=== PATIENT | female | born 1940 | race Hispanic/Latino ===

== ENCOUNTER 2016-11-11 08:22 | Emergency (ER) | payer MEDICARE ==
[2016-11-11 09:30] VITALS: RESP 18; BMI 29.2
--- NOTE | 2016-11-11 09:42 | ED PDOC ---
Arrival/HPI - General Chief Complaint: Lower Extremity Problem/Injury Time Seen by Provider: 11/11/16 08:23 Historian: Patient - History of Present Illness Narrative History of Present Illness (Text): 11/11/16 09:15 76 y/o female, pmh including htn/asthma/breast cancer, nkda, c/o rt. knee locking sensation x 6 months with no fall or trauma. Pt. stated that she constantly feeling rt. knee locking sensation with locking sound on and off, more often recently, didn't had the chance to see her own pmd or orthopedic, had rt. knee surgery but forgot the surgeon name, mild pain on the rt. knee, no calf pain, no fever or chills, no chest pain or shortness of breath, no other medical or psychological complaints. Past Medical History - Provider Review Nursing Documentation Reviewed: Yes - Infectious Disease Hx of Infectious Diseases: None - Tetanus Immunization Tetanus Immunization: Unknown - Cardiac Hx Hypertension: Yes - Pulmonary Hx Respiratory Disorders: No - Neurological Hx Neurological Disorder: No - HEENT Hx HEENT Disorder: Yes (WEARS RX GLASSES) Hx Cataracts: Yes (CATARACT SURGERY) - Renal Hx Renal Disorder: No - Endocrine/Metabolic Hx Endocrine Disorders: No - Hematological/Oncological Hx Blood Disorders: Yes Hx Cancer: Yes (breast) - Integumentary Hx Dermatological Disorder: No - Musculoskeletal/Rheumatological Hx Musculoskeletal Disorders: Yes Hx Arthritis: Yes - Gastrointestinal Hx Gastrointestinal Disorders: Yes (APPENDECTOMY) Hx Gastroesophageal Reflux: Yes - Genitourinary/Gynecological Hx Genitourinary Disorders: Yes (RIGHT BREAST LUMPECTOMY) - Psychiatric Hx Emotional Abuse: No Hx Physical Abuse: No Hx Substance Use: No - Surgical History Hx Appendectomy: Yes Hx Cardiac Catheterization: Yes Hx Mastectomy: Yes (right lumpectomy) - Anesthesia Hx Anesthesia: No Hx Anesthesia Reactions: Yes (NAUSEAS AND VOMITING) Hx Malignant Hyperthermia: No - Suicidal Assessment Feels Threatened In Home Enviroment: No Family/Social History - Physician Review Nursing Documentation Reviewed: Yes Family/Social History: Unknown Family HX Smoking Status: Former Smoker Hx Alcohol Use: No Hx Substance Use: No Allergies/Home Meds Allergies/Adverse Reactions: Allergies No Known Allergies Allergy (Verified 07/17/14 19:01) Home Medications: Home Meds Medication Instructions Recorded Confirmed Alprazolam [Xanax] 1 mg PO QID 07/01/13 07/17/14 Tamoxifen [Nolvadex] 20 mg PO DAILY 07/01/13 07/17/14 Aspirin [Aspir 81] 81 mg PO DAILY 07/07/13 07/17/14 Dexlansoprazole [Dexilant] 60 mg PO DAILY 07/08/13 07/17/14 Sucralfate [Carafate Oral Susp] 2 tsp PO TID 07/08/13 07/17/14 Albuterol HFA [Ventolin HFA 90 07/17/14 07/17/14 mcg/actuation (8 g)] Codeine Phosphate/Promethazi 07/17/14 07/17/14 [Codeine/Promethazine 10 mg/5 ml-6.25 mg/5 ml ] Carvedilol [Coreg] 6.25 PO Q12H 07/18/14 07/18/14 Review of Systems - Review of Systems Constitutional: absent: Fatigue, Fevers Eyes: absent: Vision Changes ENT: absent: Hearing Changes Respiratory: absent: SOB, Cough Cardiovascular: absent: Chest Pain Gastrointestinal: absent: Abdominal Pain, Nausea, Vomiting Musculoskeletal: Arthralgias. absent: Back Pain, Neck Pain, Joint Swelling, Myalgias Physical Exam Vital Signs Reviewed: Yes Vital Signs Temp Pulse Resp BP Pulse Ox 11/11/16 10:51 98.0 F 74 18 157/86 H 99 11/11/16 09:29 98.2 F 83 18 171/101 H 100 Temperature: Afebrile Blood Pressure: Hypertensive Pulse: Regular Respiratory Rate: Normal Appearance: Positive for: Well-Appearing, Non-Toxic, Comfortable Pain Distress: Mild Mental Status: Positive for: Alert and Oriented X 3 - Systems Exam Head: Present: Atraumatic, Normocephalic Pupils: Present: PERRL Extroacular Muscles: Present: EOMI Conjunctiva: Present: Normal Mouth: Present: Moist Mucous Membranes Neck: Present: Normal Range of Motion Respiratory/Chest: Present: Clear to Auscultation, Good Air Exchange. No: Respiratory Distress, Accessory Muscle Use Cardiovascular: Present: Regular Rate and Rhythm, Normal S1, S2. No: Murmurs Abdomen: Present: Normal Bowel Sounds. No: Tenderness, Distention, Peritoneal Signs Back: Present: Normal Inspection Upper Extremity: Present: Normal Inspection. No: Cyanosis, Edema Lower Extremity: Present: Normal Inspection, Other (Rt. knee: mild +ttp on the medial anterior aspect, negative anne and braden signs, FROM without limitation, sensation intact, motor 5/5, +DPPT pulses, capillary refill< 2 seconds, neurovascular intact. ). No: Edema Neurological: Present: GCS=15, Speech Normal, Motor Func Grossly Intact, Gait Normal, Memory Normal Skin: Present: Warm, Dry, Normal Color. No: Rashes Psychiatric: Present: Alert, Oriented x 3, Normal Insight, Normal Concentration Medical Decision Making ED Course and Treatment: 11/11/16 09:42 -rt. knee xray show no fracture or dislocation but there is degenerative joint changes, explained to the patient that she will need outpatient orthopedic and MRI for possible looking for meniscus injury. -Discharge home with cane, knee immobilizer, tylenol, avoid walking up or down the stair as this will causes locking knee, avoid walking excessively, follow up with your own pmd and orthopedic for follow up with outpatient MRI follow up as well, return to the ER for any new or worsening signs or symptoms. 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 Disposition/Present on Arrival - Present on Arrival Any Indicators Present on Arrival: No History of DVT/PE: No History of Uncontrolled Diabetes: No Urinary Catheter: No History of Decub. Ulcer: No History Surgical Site Infection Following: None - Disposition Have Diagnosis and Disposition been Completed?: Yes Diagnosis: Knee locking, Knee pain Disposition: HOME/ ROUTINE Disposition Time: 09:42 Patient Plan: Discharge Condition: GOOD Additional Instructions: -Discharge home with cane, knee immobilizer, tylenol, avoid walking up or down the stair as this will causes locking knee, avoid walking excessively, follow up with your own pmd and orthopedic for follow up with outpatient MRI follow up as well, return to the ER for any new or worsening signs or symptoms. Prescriptions: Acetaminophen [Tylenol 325mg tab] 2 tab PO QID PRN #30 tab PRN Reason: Other Referrals: Dash Serna JD, MD [Primary Care Provider] - Follow up with primary Irvin Palacio DO [Staff Provider] - Follow up with primary
[2016-11-11 10:52] VITALS: PULSE 74; TEMP 98; O2SAT 99
[2016-11-11 10:55] VITALS: BP 157/86
--- NOTE | 2016-11-11 11:02 | RAD ---
PROCEDURE: Right Knee Radiographs. HISTORY: rt. knee locking COMPARISON: None. FINDINGS: BONES: Normal. No fracture. JOINTS: There is joint space narrowing in the medial compartment with osteophyte formation. JOINT EFFUSION: None. OTHER FINDINGS: None. IMPRESSION: Medial joint space narrowing and osteophyte formation
== END 2016-11-11 11:00 | disposition home or self-care (01) ==
LOC: ED 08:22
DX: M23.91 Unspecified internal derangement of right knee (principal); M25.561 Pain in right knee

== ENCOUNTER 2017-01-23 10:11 | Emergency (ER) | payer MEDICARE ==
[2017-01-23 10:12] VITALS: BMI 29.2
[2017-01-23 10:34] VITALS: TEMP 98.3
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
[2017-01-23 11:48] LABS: URINE BILIRUBIN NEGATIVE (NEGATIVE); URINE BLOOD NEGATIVE (NEGATIVE); URINE GLUCOSE (UA) NEGATIVE (NEGATIVE); URINE KETONE NEGATIVE (NEGATIVE); URINE LEUKOCYTE ESTERASE NEGATIVE Leu/uL (NEGATIVE); URINE PROTEIN NEGATIVE mg/dL (<30 mg/dL); URINE UROBILINOGEN 0.2 E.U./dL (<1 E.U./dL)
[2017-01-23 11:57] LABS: URINE APPEARANCE CLEAR (CLEAR); URINE COLOR YELLOW (YELLOW)
[2017-01-23 12:00] LABS: ALB/GLOB RATIO 1.3 (1.1-1.8); BILIRUBIN,TOTAL 0.7 mg/dL (0.2-1.3); CALCIUM 9.7 mg/dL (8.4-10.5); POTASSIUM 3.7 mmol/L (3.6-5.0); TOTAL PROTEIN 8.2 g/dL (5.8-8.3)
[2017-01-23 12:08] LABS: BASO # 0.04 K/mm3 (0.0-2.0); BASO % 0.5 % (0.0-3.0); EOS # 0.1 (0.0-0.7); EOS % 1.2 % (1.5-5.0); GRAN # 4.45 (1.4-6.5); GRAN % 61.2 % (50.0-68.0); HEMATOCRIT 40.8 % (36.0-48.0); LYMPH # 2.1 (1.2-3.4); LYMPH % 29.3 % (22.0-35.0); MEAN CELL VOLUME 92.1 fl (80.0-105.0); MEAN CORPUSCULAR HEMOGLOBIN 31.2 pg (25.0-35.0); MEAN CORPUSCULAR HGB CONC 33.8 g/dl (31.0-37.0); MEAN PLATELET VOLUME 11.7 fl (7.0-11.0); MONO # 0.6 (0.1-0.6); MONO % 7.8 % (1.0-6.0); RED CELL DISTRIBUTION WIDTH 13.1 % (11.5-14.5); WHITE BLOOD COUNT 7.3 10^3/ul (4.5-11.0)
--- NOTE | 2017-01-23 13:10 | RAD ---
HISTORY: psych COMPARISON: Portable chest 07/17/2014. FINDINGS: LUNGS: Inspiratory volume appears diminished in the interval, crowding the bilateral bronchovascular markings at the bases. No definitive infiltrate is suspected. Air-fluid levels seen within its moderate hiatal hernia posterior to the heart. PLEURA: No significant pleural effusion identified, no pneumothorax apparent. CARDIOVASCULAR: Stable cardiomegaly. No pulmonary vascular derangement identified. OSSEOUS STRUCTURES: No significant abnormalities. VISUALIZED UPPER ABDOMEN: Normal. OTHER FINDINGS: None. IMPRESSION: Diminished history effort crowds the bronchovascular markings at both bases but no definite infiltrate is identified bilaterally. Cardiomegaly appears stable and hiatal hernia again identified.
[2017-01-23 16:55] VITALS: BP 141/97; PULSE 78; RESP 12; O2SAT 99
--- NOTE | 2017-01-23 18:45 | CARD ---
APPROVED REPORT EKG Measurement Heart [id number] <Conclusion> Normal sinus rhythm Normal ECG
== END 2017-01-23 17:09 | disposition home or self-care (01) ==
LOC: ED 10:11
DX: F41.9 Anxiety disorder, unspecified (principal); I10 Essential (primary) hypertension; Z87.891 Personal history of nicotine dependence
CPT/HCPCS: 71010; 80053; 81003; 85025; 90791; 93005; 99284; G0480

== ENCOUNTER 2017-05-19 07:36 | Day surgery (SDC) | payer MEDICARE ==
--- NOTE | 2017-05-17 01:06 | HP ---
REASON FOR ADMISSION: Left heart cath possible angioplasty. BRIEF CLINICAL HISTORY: This is a 76-year-old female with [id number] obesity, history of gastroesophageal reflux, hypertension, admitted for elective cardiac cath possible angioplasty. The patient had a stress test on 04/23/2017 that shows probably abnormal myocardial perfusion study, partially reversible distal anteroseptal and apical defect suspicious ischemia with ejection fraction 75%. When compared from the study dated 04/02/2012, the defect appeared new. PAST MEDICAL HISTORY: Significant for hypertension, hyperlipidemia, and gastroesophageal reflux. SOCIAL HISTORY: Denies smoking. Denies any history of alcohol abuse. CURRENT MEDICATIONS: The patient is taking hydrochlorothiazide 12.5 mg daily, Dexilant 50 mg daily, Coreg 6.25 mg daily, and Ativan 0.5 mg daily. REVIEW OF SYSTEMS: As per HPI. RECENT CARDIAC WORKUP: The patient had a stress dated 04/23/2017 that was sestamibi myocardial perfusion scan that showed ejection fraction 75%, fully abnormal myocardial perfusion, partially reversible distal anteroseptal and apical defect suspicious for ischemia when compared from previous study dated 04/02/2012, defect appears new. The patient had a prior cardiac catheterization done by Dr. Hari Blanco dated 07/02/2013 that showed left main essentially free of significant disease. LAD shows some luminal irregularities. There was no flow obstruction or stenosis noted. Circumflex artery revealed borderline 50% stenosis in the proximal segment of the circumflex. Rest of the vessel shows irregularities, no flow obstruction or stenosis noted. Right coronary artery selectively canalized and found to be dominant vessel. RCA revealed ____ no flow obstruction or stenosis noted. LV gram showed ejection fraction 60%. PHYSICAL EXAMINATION GENERAL: Height of the patient is 5 feet 4 inches, weight of the patient is 170 pounds, body mass index 29.2 kg/m2. VITAL SIGNS: Blood pressure 134/80, heart rate 60. HEENT: PERRLA. Extraocular muscles intact. NECK: Supple. No carotid bruits or thyromegaly. CHEST: Clear to auscultation. CARDIOPULMONARY: S1 and S2 regular. ABDOMEN: Soft. EXTREMITIES: Clubbing and cyanosis negative. LABORATORY DATA: Blood workup is pending. IMPRESSION: Abnormal stress test, hyperlipidemia, hypertension. Abnormal stress test anterior septal reversible ischemia, anteroseptal apical ischemia, which is new since 04/02/2012. We will proceed for cardiac catheterization. We will check the labs. If labs okay, we will give 300 mg plus 325 of aspirin. Risks, benefits, and alternatives were discussed with the patient. The patient is agreeable to proceed for cardiac catheterization. Further recommendation after cardiac catheterization. Thank you Dr. Serna for providing us the opportunity in taking care of Vignesh Barahona. Fartun Jang MD
[2017-05-19 08:31] LABS: BASO # 0.02 K/mm3 (0.0-2.0); BASO % 0.2 % (0.0-3.0); EOS # 0.2 (0.0-0.7); EOS % 1.9 % (1.5-5.0); GRAN # 6.3 (1.4-6.5); GRAN % 70.5 % (50.0-68.0); HEMOGLOBIN 12.8 g/dL (12.0-16.0); LYMPH # 1.6 (1.2-3.4); LYMPH % 18.3 % (22.0-35.0); MEAN CELL VOLUME 93.4 fl (80.0-105.0); MEAN CORPUSCULAR HEMOGLOBIN 31.3 pg (25.0-35.0); MEAN CORPUSCULAR HGB CONC 33.5 g/dl (31.0-37.0); MEAN PLATELET VOLUME 11.6 fl (7.0-11.0); MONO # 0.8 (0.1-0.6); MONO % 9.1 % (1.0-6.0); RBC 4.09 10^6/uL (3.5-6.1); WHITE BLOOD COUNT 8.9 10^3/ul (4.5-11.0)
[2017-05-19 08:39] LABS: CALCIUM 9.7 mg/dL (8.4-10.5)
[2017-05-19 08:41] LABS: INR 1.09 (0.93-1.08); PARTIAL THROMBOPLASTIN TIME 30.4 Seconds (25.1-36.5); PROTHROMBIN TIME 12.5 SECONDS (9.4-12.5)
[2017-05-19] MEDS ORDERED: HEPARIN SODIUM/NS 2,000 ML IV ONE (09:52)
[2017-05-19] MEDS ORDERED: Lidocaine 2% Inj (20ml) ONE (09:52)
[2017-05-19] MEDS ORDERED: Iodixanol 320 MG/ML 200 ML BOTTLE IV ONE (09:53)
[2017-05-19] MEDS ORDERED: Nitroglycerin 50mg in D5W 50 MG/250 ML BOTTLE IV ONE (10:00)
[2017-05-19] MEDS ORDERED: Midazolam 2 MG/2 ML VIAL ONE ×2 (10:00→11:01)
--- NOTE | 2017-05-19 10:30 | CARD ---
APPROVED REPORT EKG Measurement Heart [id number] <Conclusion> Normal sinus rhythm Normal ECG No change
[2017-05-19] MEDS ORDERED: Sodium Chloride 0.9% 1,000 ML IV SCH (11:45)
[2017-05-19 11:53] VITALS: TEMP 97.6
[2017-05-19 12:11] VITALS: RESP 18
[2017-05-19 15:06] VITALS: O2SAT 98
[2017-05-19 15:11] VITALS: PULSE 78
[2017-05-19 15:13] VITALS: BP 161/73
--- NOTE | 2017-05-19 17:27 | CARD ---
APPROVED REPORT Procedure(s) performed: Left Heart Catheterization HISTORY The patient is a 76 year-old female with a history of : most recent EF: 75%. (EF Method: RADIONUCLIDE), peripheral vascular disease, chronic lung disease, previous diagnostic cath, tobacco history() : The patient is a former smoker , hypertension , dyslipidemia . INDICATION The indication(s) include : positive stress test, Distal anteroseptal and Apical ischemia. CASE TECHNIQUE The patient was brought electively to the Cardiac Catheterization Laboratory in a fasting state and was prepped and draped in a sterile manner. The right femoral groin was infiltrated with 2% Lidocaine subcutaneous anesthesia. A 6 Fr x 11 cm Alethea sheath was inserted into the right femoral artery without difficulty. Coronary angiography was performed using coronary diagnostic catheters. The left coronary system was accessed and visualized with a Diagnostic ,6 Fr AL 1 catheter. The right coronary system was accessed and visualized with a Diagnostic ,6 Fr AL 1 catheter. The left ventricle was accessed and visualized with a 6 Fr Pigtail catheter. Left ventricular/Aortic Valve gradient assessed on pullback. Closure device was deployed with a 6 Fr / 7 Fr MynxGrip without any complications. Vessel Analysis The patient's coronary anatomy is left dominant. The left main coronary artery is a medium size vessel with diffuse calcification noted throughout this vessel and without significant stenosis. The left main bifurcates to the left anterior descending and circumflex. The left anterior descending artery is a medium size vessel with diffuse calcification noted throughout this vessel and without significant stenosis. Very tortous vessel There is a 50% stenosis in the ostial segment. The first diagonal branch is a small size vessel with diffuse calcification noted throughout this vessel and without significant stenosis. There is a 60% stenosis in the ostial segment. The circumflex artery is a large size vessel with diffuse calcification noted throughout this vessel and without significant stenosis. The first obtuse marginal branch is a medium size vessel with diffuse calcification noted throughout this vessel and without significant stenosis. The right coronary artery is a small size vessel with diffuse calcification noted throughout this vessel and without significant stenosis. Left Ventricle The left ventricle is normal in size with normal contractility. There was no cardiomyopathy. The left ventricular ejection fraction is estimated to be 65%. The left ventricular end diastolic pressure is 16-18 mmHg. There was no gradient across the aortic valve upon pullback. 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 Non domoinant RCA small vessel Preserved LV FX. EF-65%.EDP-16-18 mmof hg Recommendations Aggressive Medical TherapyCardiac Risk Reduction Program Weight Loss Reduction Program F/u Stress test in one year to mpnotor progression of CAD in LAD/D1. CC;/ Anyi.
== END 2017-05-19 17:00 | disposition home or self-care (01) ==
LOC: CATH 07:36
PROVIDERS: ATTEND Internal Medicine Cardiovascular Disease
DX: I25.10 Atherosclerotic heart disease of native coronary artery without angina pectoris (principal); I10 Essential (primary) hypertension; E78.5 Hyperlipidemia, unspecified; Z87.891 Personal history of nicotine dependence; I73.9 Peripheral vascular disease, unspecified; K21.9 Gastro-esophageal reflux disease without esophagitis
CPT/HCPCS: 36415; 80048; 80061; 85025; 85610; 85730; 86850; 86900; 93005; 93458; 99152; 99153; C1760; C1769; C2629; J1644 ×2; J2250; J3010; J7030; J7040

== ENCOUNTER 2017-10-06 08:25 | Emergency (ER) | payer MEDICARE ==
[2017-10-06 08:39] VITALS: O2SAT 98; BMI 30.2
[2017-10-06] MEDS ORDERED: Atrop/Hyosc/Scopal/PB Elixir (120 ml) PO STA (08:59)
[2017-10-06] MEDS ORDERED: Sodium Chloride 0.9% 1,000 ML IV STA (08:59)
[2017-10-06] MEDS ORDERED: Alum-Mag Hydrox-Simethicone Susp (30 mL) PO STA (08:59)
[2017-10-06 09:10] LABS: EOS % 0.2 % (1.5-5.0); GRAN # 8.54 (1.4-6.5); GRAN % 90.1 % (50.0-68.0); HEMOGLOBIN 14.2 g/dL (12.0-16.0); LYMPH # 0.5 (1.2-3.4); LYMPH % 5.4 % (22.0-35.0); MEAN CELL VOLUME 89.6 fl (80.0-105.0); MEAN CORPUSCULAR HEMOGLOBIN 31.3 pg (25.0-35.0); MEAN CORPUSCULAR HGB CONC 34.9 g/dl (31.0-37.0); MEAN PLATELET VOLUME 11.5 fl (7.0-11.0); MONO # 0.4 (0.1-0.6); MONO % 4.3 % (1.0-6.0); PLATELET COUNT 193 10^3/uL (120.0-450.0); RBC 4.54 10^6/uL (3.5-6.1); RED CELL DISTRIBUTION WIDTH 12.7 % (11.5-14.5); WHITE BLOOD COUNT 9.5 10^3/ul (4.5-11.0)
[2017-10-06 09:19] LABS: ALB/GLOB RATIO 1.3 (1.1-1.8); ALBUMIN 4.7 g/dL (3.0-4.8); CALCIUM 9.1 mg/dL (8.4-10.5)
[2017-10-06 09:22] LABS: VENOUS BLOOD GAS BASE EXCESS 3.5 mmol/L (0.0-2.0); VENOUS BLOOD GAS PO2 24 mm/Hg (30-55)
[2017-10-06] MEDS ORDERED: Potassium Chloride 20 mEq ER Tab PO STA (09:27)
[2017-10-06] MEDS ORDERED: Magnesium Oxide 400 mg Tab UD PO STA (09:27)
[2017-10-06 09:39] LABS: LYMPHOCYTE 7 % (22.0-35.0); MONOCYTE 2 % (1.0-6.0); NEUTROPHIL 91 % (50.0-70.0); PLATELET ESTIMATE NORMAL (NORMAL)
--- NOTE | 2017-10-06 09:43 | ED PDOC ---
Arrival/HPI - General Chief Complaint: GI Problem Time Seen by Provider: 10/06/17 08:54 Historian: Patient - History of Present Illness Narrative History of Present Illness (Text): 10/06/17 09:39 A 77 year old female, whose past medical history includes hypertension, asthma, COPD, GERD, appendectomy, and breast cancer with lumpectomy, presents to the emergency department complaining of nausea, vomiting and diarrhea for 1 day. Patient notes associated abdominal pain and generalized body aches. She reports tolerating PO fluids. Patient also reports nasal congestion but denies any fever , chills, back pain, chest pain, shortness of breath, cough, rash or any other complaints. Patient denies any recent travel. PMD: Dr. Dash Serna Warehouse Distribution Manager: Dr. Strauss Oncologist: Dr. Monreal Surgeon: Dr. Neri Time/Duration: 24 hours Symptom Course: Unchanged Quality: Other Context: Home Past Medical History - Provider Review Nursing Documentation Reviewed: Yes - Infectious Disease Hx of Infectious Diseases: None - Tetanus Immunization Tetanus Immunization: Unknown - Cardiac Hx Cardiac Disorders: Yes Hx Hypertension: Yes Hx Pacemaker: No - Pulmonary Hx Chronic Obstructive Pulmonary Disease (COPD): Yes - Neurological Hx Paralysis: No - HEENT Hx HEENT Disorder: Yes (WEARS RX GLASSES) Hx Cataracts: Yes (CATARACT SURGERY) - Renal Hx Renal Disorder: No - Endocrine/Metabolic Hx Endocrine Disorders: No - Hematological/Oncological Hx Blood Transfusions: No - Integumentary Hx Dermatological Disorder: No - Musculoskeletal/Rheumatological Hx Musculoskeletal Disorders: Yes - Gastrointestinal Hx Gastrointestinal Disorders: Yes (APPENDECTOMY) Hx Diverticulitis: Yes Hx Gastroesophageal Reflux: Yes - Genitourinary/Gynecological Hx Genitourinary Disorders: Yes (RIGHT BREAST LUMPECTOMY) - Psychiatric Hx Emotional Abuse: No Hx Physical Abuse: No Hx Substance Use: No - Surgical History Hx Appendectomy: Yes Hx Musculoskeletal Surgery: Yes - Anesthesia Hx Anesthesia Reactions: Yes (SEVERE NAUSEA AND VOMITING) Hx Malignant Hyperthermia: No - Suicidal Assessment Feels Threatened In Home Enviroment: No Family/Social History - Physician Review Nursing Documentation Reviewed: Yes Family/Social History: No Known Family HX Smoking Status: Former Smoker Hx Alcohol Use: No Hx Substance Use: No Allergies/Home Meds Allergies/Adverse Reactions: Allergies No Known Allergies Allergy (Verified 10/06/17 08:46) Home Medications: Home Meds Medication Instructions Recorded Confirmed Aspirin [Aspir 81] 81 mg PO DAILY 07/07/13 05/19/17 Dexlansoprazole [Dexilant] 60 mg PO DAILY 07/08/13 05/19/17 Carvedilol [Coreg] 6.25 mg PO Q12H 07/18/14 05/19/17 hydroCHLOROthiazide [Microzide] 12.5 mg PO DAILY 04/23/17 05/19/17 LORazepam [Ativan] 0.5 mg PO PRN PRN 05/13/17 05/19/17 Review of Systems - Physician Review All systems were reviewed & negative as marked: Yes - Review of Systems Constitutional: absent: Fevers, Night Sweats Respiratory: absent: SOB, Cough Cardiovascular: absent: Chest Pain Gastrointestinal: Abdominal Pain, Diarrhea, Nausea, Vomiting Musculoskeletal: Myalgias. absent: Back Pain Skin: absent: Rash Physical Exam Vital Signs Reviewed: Yes Vital Signs Temp Pulse Resp BP Pulse Ox 10/06/17 11:30 104 H 17 117/64 98 10/06/17 08:38 98.1 F 98 H 19 145/78 98 Temperature: Afebrile Blood Pressure: Hypertensive Pulse: Regular Respiratory Rate: Normal Appearance: Positive for: Well-Appearing, Non-Toxic, Comfortable Pain Distress: None Mental Status: Positive for: Alert and Oriented X 3 - Systems Exam Head: Present: Atraumatic, Normocephalic Pupils: Present: PERRL Extroacular Muscles: Present: EOMI Conjunctiva: Present: Normal Mouth: Present: Moist Mucous Membranes Neck: Present: Normal Range of Motion Respiratory/Chest: Present: Clear to Auscultation, Good Air Exchange. No: Respiratory Distress, Accessory Muscle Use Cardiovascular: Present: Regular Rate and Rhythm, Normal S1, S2. No: Murmurs Abdomen: Present: Tenderness (Diffuse nonspecific abdominal tenderness), Normal Bowel Sounds. No: Distention, Peritoneal Signs Back: Present: Normal Inspection Upper Extremity: Present: Normal Inspection, NORMAL PULSES. No: Cyanosis, Edema Lower Extremity: Present: Normal Inspection, NORMAL PULSES. No: Edema Neurological: Present: GCS=15, CN II-XII Intact, Speech Normal Skin: Present: Warm, Dry, Normal Color. No: Rashes Psychiatric: Present: Alert, Oriented x 3, Normal Insight, Normal Concentration Medical Decision Making ED Course and Treatment: 10/06/17 09:39 Impression: A 77 year old female with nausea, vomiting, diarrhea, abdominal pain and body aches. Differential Diagnosis included but are not limited to: Acute gastroenterirtis Plan: -- Labs -- Maalox, , Pepcid, Lidocaine, Mag-Ox, Zofran, K-dur and IV fluids -- Reassess and disposition Progress Notes: 10/06/17 09:49 Potassium and Magnesium levels replaced. Patient appears improved. Abdomen soft , NT, ND. Bsx4 normal. Patient no longer has pain. 10/06/17 12:09 Patient stable and improved. HR 90's. She does not feel light headed or dizziness when she stands. She is tolerating PO fluids without vomiting. She feels comfortable going home. She will f/u with her primary care doctor in 1-2 days. - Lab Interpretations Lab Results: 10/06/17 08:50 10/06/17 08:50 Lab Results 10/06/17 09:05: pO2 24 L, VBG pH 7.40, VBG pCO2 47.0, VBG HCO3 29.1 H, VBG Total CO2 30.5 H, VBG O2 Sat (Calc) 49.4, VBG Base Excess 3.5 H, VBG Potassium 3.1 L, Glucose 118 H, Lactate 2.2 H, FiO2 21.0, Sodium 139.0, Chloride 103.0, Venous Blood Potassium 3.1 L 10/06/17 08:50: Sodium 142, Potassium 3.0 L, Chloride 100, Carbon Dioxide 27, Anion Gap 18, BUN 26 H, Creatinine 1.2, Est GFR ( Amer) 52, Est GFR (Non- Af Amer) 43, Random Glucose 112 H, Calcium 9.1, Magnesium 1.5 L, Total Bilirubin 0.9, AST 49 H, ALT 38, Alkaline Phosphatase 72, Total Protein 8.4 H, Albumin 4.7, Globulin 3.7, Albumin/Globulin Ratio 1.3, Lipase 368 H 10/06/17 08:50: WBC 9.5, RBC 4.54, Hgb 14.2, Hct 40.7, MCV 89.6 D, MCH 31.3, MCHC 34.9, RDW 12.7, Plt Count 193, MPV 11.5 H, Gran % 90.1 H, Lymph % (Auto) 5.4 L, [place] % (Auto) 4.3, Eos % (Auto) 0.2 L, Baso % (Auto) 0.0, Gran # 8.54 H, Lymph # (Auto) 0.5 L, [place] # (Auto) 0.4, Eos # (Auto) 0.0, Baso # (Auto) 0.00, Neutrophils % (Manual) 91 H, Lymphocytes % (Manual) 7 L, Monocytes % (Manual) 2 , Platelet Evaluation Normal I have reviewed the lab results: Yes - Medication Orders Current Medication Orders: Discontinued Medications Al Hydrox/Mg Hydrox/Simethicone (Maalox Plus 30 Ml) 30 ml PO STAT STA Stop: 10/06/17 09:00 Last Admin: 10/06/17 09:24 Dose: 30 ml Belladonna/Phenobarbital ( Elixir) 10 ml PO STAT STA Stop: 10/06/17 09:00 Last Admin: 10/06/17 09:23 Dose: 10 mg Famotidine (Pepcid) 20 mg IVP STAT STA Stop: 10/06/17 09:00 Last Admin: 10/06/17 09:23 Dose: 20 mg IVP Administration Document 10/06/17 09:23 [facility] [place] (Rec: 10/06/17 09:23 [facility] [place] [id number]) Charges for Administration # of IVP Administrations 1 Sodium Chloride (Sodium Chloride 0.9%) 1,000 mls @ 1,000 mls/hr IV .Q1H STA Stop: 10/06/17 09:58 Last Admin: 10/06/17 09:23 Dose: 1,000 mls/hr eMAR Start Stop Document 10/06/17 09:23 [facility] [place] (Rec: 10/06/17 09:23 [facility] [place] [id number]) Intravenous Solution Start Date 10/06/17 Start Time 09:23 End Date 10/06/17 End time 10:25 Total Infusion Time 62 Lidocaine HCl (Lidocaine 2% Viscous) 10 ml MM STAT STA Stop: 10/06/17 09:00 Last Admin: 10/06/17 09:24 Dose: 10 ml Magnesium Oxide (Mag-Ox) 400 mg PO STAT STA Stop: 10/06/17 09:28 Last Admin: 10/06/17 09:53 Dose: 400 mg Ondansetron HCl (Zofran Inj) 4 mg IVP STAT STA Stop: 10/06/17 09:00 Last Admin: 10/06/17 09:23 Dose: 4 mg IVP Administration Document 10/06/17 09:23 [facility] [place] (Rec: 10/06/17 09:23 [facility] [place] [id number]) Charges for Administration # of IVP Administrations 1 Potassium Chloride (K-Dur 20 Meq Er Tab) 40 meq PO STAT STA Stop: 10/06/17 09:28 Last Admin: 10/06/17 09:53 Dose: 40 meq - Scribe Statement The provider has reviewed the documentation as recorded by the Himanshu [place] Provider Scribe Attestation: All medical record entries made by the Scribe were at my direction and personally dictated by me. I have reviewed the chart and agree that the record accurately reflects my personal performance of the history, physical exam, medical decision making, and the department course for this patient. I have also personally directed, reviewed, and agree with the discharge instructions and disposition. Disposition/Present on Arrival - Present on Arrival Any Indicators Present on Arrival: No History of DVT/PE: No History of Uncontrolled Diabetes: No Urinary Catheter: No History of Decub. Ulcer: No History Surgical Site Infection Following: None - Disposition Have Diagnosis and Disposition been Completed?: Yes Diagnosis: Gastroenteritis, Pancreatitis Disposition: HOME/ ROUTINE Disposition Time: 12:11 Patient Plan: Discharge Patient Problems: Current Active Problems Problem Status Onset Gastroenteritis Acute Pancreatitis Acute Condition: IMPROVED Discharge Instructions (ExitCare): Diarrhea in Adolescents and Adults Additional Instructions: Ms Barahona, thank you for letting us take care of you today. Your provider was Dr. Rob. You were treated for Gastroenteritis, Pancreatitis. The emergency medical care you received today was directed at your acute symptoms. If you were prescribed any medication, please fill it and take as directed. It may take several days for your symptoms to resolve. Return to the Emergency Department if your symptoms worsen, do not improve, or if you have any other problems. Please contact your doctor or call one of the physicians/clinics you have been referred to that are listed on the Patient Visit Information form that is included in your discharge packet. Bring any paperwork you were given at discharge with you along with any medications you are taking to your follow up visit. Our treatment cannot replace ongoing medical care by a primary care provider (PCP) outside of the emergency department. Thank you for allowing the [facility] team to be part of your care today. If you had an X-Ray or CT scan: A Radiologist will review the ED reading if any change in treatment is needed we will contact you. If you had a blood, urine, or wound culture: It will take several days for the results, if any change in treatment is needed we will contact you. If you had an STI test: It will take 48 hours for the results. Please call after 1 week if you have not heard back. Referrals: Dash Serna JD, MD [Family Provider] - Follow up with primary Forms: [employer] (Divehi)
[2017-10-06 11:46] VITALS: RESP 17
[2017-10-06 12:17] VITALS: BP 110/57; PULSE 100; TEMP 98
== END 2017-10-06 12:27 | disposition home or self-care (01) ==
LOC: ED 08:25
DX: K52.9 Noninfective gastroenteritis and colitis, unspecified (principal); K85.90 Acute pancreatitis without necrosis or infection, unspecified; I10 Essential (primary) hypertension; K21.9 Gastro-esophageal reflux disease without esophagitis; Z87.891 Personal history of nicotine dependence
CPT/HCPCS: 80053; 82803; 83690; 83735; 85025; 96361; 96374; 96375; 99283; J2405; J7030

== ENCOUNTER 2017-10-09 10:44 | Observation (INO) | payer MEDICARE, OTHER ==
[2017-10-09 10:45] VITALS: BMI 30.2
[2017-10-09] MEDS ORDERED: Sodium Chloride 0.9% 500 ML IV STA (11:56)
--- NOTE | 2017-10-09 12:00 | ED PDOC ---
Arrival/HPI - General Chief Complaint: GI Problem Time Seen by Provider: 10/09/17 11:53 Historian: Patient - History of Present Illness Narrative History of Present Illness (Text): 10/09/17 11:56 77 year old female, with no significant past medical history, presents to the Emergency department for persisitent gastrointestinal symptoms. Patient visited the Emergency department 4 days ago and was diagnosed with gastroenteritis. Patient visited PMD for persistent pain, who advised patient to come to the Emergency department. Patient notes vomiting, diarrhea and abdominal pain. Patient denies any fever, chills, chest pain, shortness of breath, back pain, neck pain, headache, dizziness, or any other complaints. PMD: Dr. Dash Serna Time/Duration: < week Symptom Onset: Gradual Symptom Course: Unchanged Activities at Onset: Light Context: Home Past Medical History - Provider Review Nursing Documentation Reviewed: Yes - Infectious Disease Hx of Infectious Diseases: None - Tetanus Immunization Tetanus Immunization: Unknown - Cardiac Hx Cardiac Disorders: Yes Hx Hypertension: Yes Hx Pacemaker: No - Pulmonary Hx Chronic Obstructive Pulmonary Disease (COPD): Yes - Neurological Hx Paralysis: No - HEENT Hx HEENT Disorder: Yes (WEARS RX GLASSES) Hx Cataracts: Yes (CATARACT SURGERY) - Renal Hx Renal Disorder: No - Endocrine/Metabolic Hx Endocrine Disorders: No - Hematological/Oncological Hx Blood Transfusions: No - Integumentary Hx Dermatological Disorder: No - Musculoskeletal/Rheumatological Hx Musculoskeletal Disorders: Yes - Gastrointestinal Hx Gastrointestinal Disorders: Yes (APPENDECTOMY) Hx Diverticulitis: Yes Hx Gastroesophageal Reflux: Yes - Genitourinary/Gynecological Hx Genitourinary Disorders: Yes (RIGHT BREAST LUMPECTOMY) - Psychiatric Hx Emotional Abuse: No Hx Physical Abuse: No Hx Substance Use: No - Surgical History Hx Appendectomy: Yes Hx Musculoskeletal Surgery: Yes - Anesthesia Hx Anesthesia Reactions: Yes (SEVERE NAUSEA AND VOMITING) Hx Malignant Hyperthermia: No - Suicidal Assessment Feels Threatened In Home Enviroment: No Family/Social History - Physician Review Nursing Documentation Reviewed: Yes Family/Social History: Unknown Family HX Smoking Status: Former Smoker Hx Alcohol Use: No Hx Substance Use: No Allergies/Home Meds Allergies/Adverse Reactions: Allergies No Known Allergies Allergy (Verified 10/09/17 11:46) Home Medications: Home Meds Medication Instructions Recorded Confirmed Aspirin [Aspir 81] 81 mg PO DAILY 07/07/13 05/19/17 Dexlansoprazole [Dexilant] 60 mg PO DAILY 07/08/13 05/19/17 Carvedilol [Coreg] 6.25 mg PO Q12H 07/18/14 05/19/17 hydroCHLOROthiazide [Microzide] 12.5 mg PO DAILY 04/23/17 05/19/17 LORazepam [Ativan] 0.5 mg PO PRN PRN 05/13/17 05/19/17 Review of Systems - Physician Review All systems were reviewed & negative as marked: Yes - Review of Systems Constitutional: Normal Eyes: Normal ENT: Normal Respiratory: Normal. absent: SOB, Cough Cardiovascular: Normal. absent: Chest Pain Gastrointestinal: Abdominal Pain, Diarrhea, Vomiting Genitourinary Female: Normal. absent: Dysuria Musculoskeletal: Normal. absent: Back Pain, Neck Pain Skin: Normal. absent: Rash Neurological: Normal. absent: Headache, Dizziness Endocrine: Normal Hemo/Lymphatic: Normal Psychiatric: Normal Physical Exam Vital Signs Reviewed: Yes Vital Signs Temp Pulse Resp BP Pulse Ox 10/09/17 11:50 98.3 F 79 18 147/96 H 96 10/09/17 11:44 98.3 F 89 18 134/76 98 Temperature: Afebrile Blood Pressure: Normal Pulse: Regular Respiratory Rate: Normal Appearance: Positive for: Well-Appearing, Non-Toxic, Comfortable Pain Distress: None Mental Status: Positive for: Alert and Oriented X 3 - Systems Exam Head: Present: Atraumatic, Normocephalic Pupils: Present: PERRL Extroacular Muscles: Present: EOMI Conjunctiva: Present: Normal Mouth: Present: Moist Mucous Membranes Neck: Present: Normal Range of Motion. No: Meningeal Signs, MIDLINE TENDERNESS Respiratory/Chest: Present: Clear to Auscultation, Good Air Exchange. No: Respiratory Distress, Accessory Muscle Use Cardiovascular: Present: Regular Rate and Rhythm, Normal S1, S2. No: Murmurs Abdomen: No: Tenderness, Distention, Peritoneal Signs Back: Present: Normal Inspection Upper Extremity: Present: Normal Inspection. No: Cyanosis, Edema Lower Extremity: Present: Normal Inspection. No: Edema Neurological: Present: GCS=15, CN II-XII Intact, Speech Normal Skin: Present: Warm, Dry, Normal Color. No: Rashes Psychiatric: Present: Alert, Oriented x 3, Normal Insight, Normal Concentration Medical Decision Making ED Course and Treatment: 10/09/17 12:02 Impression: 77 year old female presents to the emergency department complaining of persistent vomiting, diarrhea, and abdominal pain. Plan: -- Abd/Pelvis CT -- Labs -- Zofran -- Sodium Chloride -- Reassess and disposition Progress Notes: 10/09/17 13:54 CT Abdomen/Pelvis reviewed, shows: LOWER THORAX: There is a large hiatal hernia measuring 7 x 9 cm. There is gastric wall thickening within the hernia consistent with gastritis LIVER: Unremarkable. No gross lesion or ductal dilatation. GALLBLADDER AND BILE DUCTS: Unremarkable. PANCREAS: Unremarkable. No gross lesion or ductal dilatation. SPLEEN: Unremarkable. ADRENALS: Unremarkable. No mass. KIDNEYS AND URETERS: Unremarkable. No hydronephrosis. No solid mass. VASCULATURE: Unremarkable. No aortic aneurysm. BOWEL: Unremarkable. No obstruction. No gross mural thickening. APPENDIX: Normal appendix. PERITONEUM: Unremarkable. No free fluid. No free air. LYMPH NODES: Unremarkable. No enlarged lymph nodes. BLADDER: Unremarkable. REPRODUCTIVE: Unremarkable. BONES: No acute fracture. OTHER FINDINGS: None. IMPRESSION: There is a large hiatal hernia measuring 7 x 9 cm. There is gastric wall thickening within the hernia consistent with gastritis 10/09/17 14:01 Patient was po challenged and vomited. Additional anti-emetic ordered. Dr Serna accepted for observation - Lab Interpretations Lab Results: 10/09/17 12:16 10/09/17 12:16 Lab Results 10/09/17 12:16: Sodium 140, Potassium 3.3 L, Chloride 101, Carbon Dioxide 28, Anion Gap 14, BUN 17, Creatinine 1.1, Est GFR ( Amer) 58, Est GFR (Non- Af Amer) 48, Random Glucose 100, Calcium 8.8, Phosphorus 2.9, Magnesium 1.8, Total Bilirubin 0.4, AST 41 H, ALT 49, Alkaline Phosphatase 62, Total Protein 7.4, Albumin 4.1, Globulin 3.2, Albumin/Globulin Ratio 1.3, Lipase 134 10/09/17 12:16: WBC 6.3 D, RBC 4.23, Hgb 13.1, Hct 37.8, MCV 89.4, MCH 31.0, MCHC 34.7, RDW 12.8, Plt Count 184, MPV 11.4 H, Gran % 57.5, Lymph % (Auto) 32.2 , [place] % (Auto) 9.2 H, Eos % (Auto) 0.8 L, Baso % (Auto) 0.3, Gran # 3.62, Lymph # (Auto) 2.0, [place] # (Auto) 0.6, Eos # (Auto) 0.1, Baso # (Auto) 0.02 - RAD Interpretation Radiology Orders: 10/09/17 11:56 ABD & PELVIS IV CONTRAST ONLY [CT] Stat - Medication Orders Current Medication Orders: Discontinued Medications Sodium Chloride (Sodium Chloride 0.9%) 500 mls @ 999 mls/hr IV .Q31M STA Stop: 10/09/17 12:26 Last Admin: 10/09/17 12:15 Dose: 999 mls/hr eMAR Start Stop Document 10/09/17 12:15 OCS (Rec: 10/09/17 12:15 [id number] Intravenous Solution Start Date 10/09/17 Start Time 12:15 End Date 10/09/17 End time 12:45 Total Infusion Time 30 Metoclopramide HCl (Reglan) 10 mg IVP STAT STA Stop: 10/09/17 14:27 Ondansetron HCl (Zofran Inj) 4 mg IVP STAT STA Stop: 10/09/17 11:57 Last Admin: 10/09/17 12:15 Dose: 4 mg IVP Administration Document 10/09/17 12:15 OCS (Rec: 10/09/17 12:15 [id number] Charges for Administration # of IVP Administrations 1 Potassium Chloride (K-Dur 20 Meq Er Tab) 40 meq PO STAT STA Stop: 10/09/17 13:13 - Scribe Statement The provider has reviewed the documentation as recorded by the Scribe Sofia Lee All medical record entries made by the Scribe were at my direction and personally dictated by me. I have reviewed the chart and agree that the record accurately reflects my personal performance of the history, physical exam, medical decision making, and the department course for this patient. I have also personally directed, reviewed, and agree with the discharge instructions and disposition. Disposition/Present on Arrival - Present on Arrival Any Indicators Present on Arrival: No History of DVT/PE: No History of Uncontrolled Diabetes: No Urinary Catheter: No History of Decub. Ulcer: No History Surgical Site Infection Following: None - Disposition Have Diagnosis and Disposition been Completed?: Yes Diagnosis: Intractable vomiting, Gastritis Disposition: HOSPITALIZED Disposition Time: 14:33 Patient Plan: Observation Condition: FAIR Referrals: Dash Serna JD, MD [Primary Care Provider] - Follow up with primary Forms: [employer] (Romanian)
[2017-10-09] MEDS ORDERED: Iohexol 350 MG/100 ML VIAL ONE (12:06)
[2017-10-09 12:24] LABS: BASO # 0.02 K/mm3 (0.0-2.0); BASO % 0.3 % (0.0-3.0); EOS # 0.1 (0.0-0.7); EOS % 0.8 % (1.5-5.0); GRAN # 3.62 (1.4-6.5); GRAN % 57.5 % (50.0-68.0); HEMOGLOBIN 13.1 g/dL (12.0-16.0); LYMPH % 32.2 % (22.0-35.0); MEAN CELL VOLUME 89.4 fl (80.0-105.0); MEAN CORPUSCULAR HGB CONC 34.7 g/dl (31.0-37.0); MEAN PLATELET VOLUME 11.4 fl (7.0-11.0); MONO # 0.6 (0.1-0.6); MONO % 9.2 % (1.0-6.0); RBC 4.23 10^6/uL (3.5-6.1); RED CELL DISTRIBUTION WIDTH 12.8 % (11.5-14.5); WHITE BLOOD COUNT 6.3 10^3/ul (4.5-11.0)
[2017-10-09 12:37] LABS: ALB/GLOB RATIO 1.3 (1.1-1.8); ALBUMIN 4.1 g/dL (3.0-4.8); CALCIUM 8.8 mg/dL (8.4-10.5)
[2017-10-09] MEDS ORDERED: Potassium Chloride 20 mEq ER Tab PO STA (13:12)
--- NOTE | 2017-10-09 13:52 | CT ---
PROCEDURE: CT Abdomen and Pelvis with contrast HISTORY: abdominal pain, persistent vomiting COMPARISON: None. TECHNIQUE: Contrast dose: 100 cc of Omni 350 Radiation dose: Total exam DLP = 582 mGy-cm. This CT exam was performed using one or more of the following dose reduction techniques: Automated exposure control, adjustment of the mA and/or kV according to patient size, and/or use of iterative reconstruction technique. FINDINGS: LOWER THORAX: There is a large hiatal hernia measuring 7 x 9 cm. There is gastric wall thickening within the hernia consistent with gastritis LIVER: Unremarkable. No gross lesion or ductal dilatation. GALLBLADDER AND BILE DUCTS: Unremarkable. PANCREAS: Unremarkable. No gross lesion or ductal dilatation. SPLEEN: Unremarkable. ADRENALS: Unremarkable. No mass. KIDNEYS AND URETERS: Unremarkable. No hydronephrosis. No solid mass. VASCULATURE: Unremarkable. No aortic aneurysm. BOWEL: Unremarkable. No obstruction. No gross mural thickening. APPENDIX: Normal appendix. PERITONEUM: Unremarkable. No free fluid. No free air. LYMPH NODES: Unremarkable. No enlarged lymph nodes. BLADDER: Unremarkable. REPRODUCTIVE: Unremarkable. BONES: No acute fracture. OTHER FINDINGS: None. IMPRESSION: There is a large hiatal hernia measuring 7 x 9 cm. There is gastric wall thickening within the hernia consistent with gastritis
--- NOTE | 2017-10-09 17:29 | HP ---
DATE OF EXAM: 10/09/2017 HISTORY OF PRESENT ILLNESS: The patient is a 77-year-old female admitted through the emergency department with complaint of intractable nausea and vomiting for the past 3-4 days. The patient reports her granddaughter was effected with a Norovirus and she may have contracted that. The patient denies any melena, bright red blood per rectum. She does report some nonbloody diarrhea with frequent episodes of watery diarrhea throughout the day. No chest pain. No shortness of breath. The patient denies any fevers or chills. PAST MEDICAL HISTORY: Includes hypertension. There is no history of diabetes or coronary disease. The patient has a history of depression as well as gastritis and diverticulitis. PAST SURGICAL HISTORY: The patient has a history of CA of the breast status post right lumpectomy in 2009. She also has a history of appendectomy in the remote past. CURRENT MEDICATIONS: Include Dexilant 60 mg daily, carvedilol 6.25 mg every 12 hours, hydrochlorothiazide 12.5 -mg a day and Ativan 0.5 mg p.r.n. ALLERGIES: THE PATIENT HAS NO KNOWN DRUG ALLERGIES. FAMILY HISTORY: Noncontributory. SOCIAL HISTORY: The patient denies any history of alcohol or tobacco use. REVIEW OF SYSTEMS: Essentially as above. PHYSICAL EXAMINATION: GENERAL: The patient is a well-developed, well-nourished female in no acute distress. VITAL SIGNS: Blood pressure 113/57, temperature 97.8, pulse 82, respiratory rate 20. HEENT: Head: Normocephalic, atraumatic. Pupils are equal, round and reactive to light. Extraocular movements intact. NECK: Supple. No thyromegaly. No adenopathy. No carotid bruit. LUNGS: Clear. HEART: Regular rate and rhythm. ABDOMEN: Soft with mild epigastric tenderness to deep palpation. No guarding. No rebound. Bowel sounds are normoactive. EXTREMITIES: Without cyanosis, clubbing or edema. NEUROLOGICAL: The patient is awake and oriented x3 without focal, sensory or motor deficits. SKIN: Warm and dry. LABORATORY DATA: WBC 6.3, hemoglobin 13.1, hematocrit 37.8. Sodium 140, potassium 3.3, chloride 101, CO2 28, BUN 17, creatinine 1.1, glucose is 100. CT scan of the abdomen and pelvis was done, which was significant only for some gastritis and a large hiatal hernia. IMPRESSION: 1. Intractable nausea and vomiting secondary to viral gastroenteritis. 2. Hiatal hernia/gastritis. 3. Hypertension. 4. Hypercholesterolemia. 5. Cancer of the breast status post lumpectomy. PLAN: The patient will be admitted to the medic-surgical floor. She will receive IV hydration and p.r.n. ondansetron for nausea and vomiting. We will obtain a GI consult from Dr. Efe Escamilla. Monitor electrolytes. TREY Laureano MD
[2017-10-09 20:54] LABS: PH,URINE 6.5 (4.7-8.0); URINE BILIRUBIN NEGATIVE (NEGATIVE); URINE BLOOD NEGATIVE (NEGATIVE); URINE GLUCOSE (UA) NEGATIVE (NEGATIVE); URINE LEUKOCYTE ESTERASE TRACE Leu/uL (NEGATIVE); URINE PROTEIN NEGATIVE mg/dL (<30 mg/dL)
[2017-10-09 21:29] LABS: URINE APPEARANCE CLEAR (CLEAR); URINE COLOR YELLOW (YELLOW)
[2017-10-10] MEDS: Sodium Chloride 0.9% 1,000 ML IV SCH ×2 (10:08→10:13)
[2017-10-10] MEDS ORDERED: Pantoprazole 40 mg EC Tab PO SCH (12:50)
--- NOTE | 2017-10-10 23:37 | CON ---
DATE: 10/10/2017 GASTROENTEROLOGY CONSULTATION REQUESTING PHYSICIAN: Dr. Serna. REASON FOR CONSULTATION AND HISTORY OF PRESENT ILLNESS: I have been asked to see this 77-year-old female with known history of GERD with a history of esophageal ulcer, large hiatal hernia, who comes to the hospital with 5 days of intractable nausea, vomiting, abdominal pain and diarrhea. The patient was seen in the emergency room 4 days ago and was sent home. However, her symptoms persisted with abdominal pain, nausea, vomiting, diarrhea and an inability to keep anything down. She felt weak. Further note is that the patient was taking care of grandson a day before her symptoms started and he was diagnosed with norovirus gastroenteritis. The patient has tolerated liquid diet this morning. She denies any further nausea or vomiting. She has not had any further diarrhea. She denies any rectal bleeding, hematemesis or melena. PAST MEDICAL HISTORY: As above. Again, she has a history of GERD with esophageal ulcer, hiatal hernia, hypertension, COPD and diverticulosis. PAST SURGICAL HISTORY: Notable for right breast lumpectomy, appendectomy and cataract surgery. SOCIAL HISTORY: She is a former cigarette smoker, having quit over 10 years ago. She denies alcohol use. FAMILY HISTORY: Noncontributory. REVIEW OF SYSTEMS: A 14-point review of systems is notable for nausea, vomiting, diarrhea, abdominal pain, generalized weakness. MEDICATIONS AT HOME: Include Dexilant 60 mg once a day, Coreg 6.25 mg b.i.d., hydrochlorothiazide 12.5 mg daily, Ativan 0.5 mg as needed for agitation and anxiety, baby aspirin 81 mg once a day. PHYSICAL EXAMINATION GENERAL: Well-developed female lying in bed in no acute distress. VITAL SIGNS: Reveal temperature of 98.3, blood pressure 131/74, heart rate of 81. HEENT: Reveals sclerae to be white. Oral mucosa is dry. NECK: Supple. CHEST: Reveal lungs to be clear. HEART: Reveals regular rate and rhythm. ABDOMEN: Soft, nontender. EXTREMITIES: Show no edema. LABORATORY DATA: Revealed white blood cell count 6.3, hemoglobin 13.1. Chemistries reveal potassium of 3.3, AST 41. IMPRESSION: A 77-year-old female with 5 days of intractable nausea, vomiting, diarrhea and abdominal cramps. The patient was taking care of her grandson prior to the onset of her symptoms who was diagnosed with norovirus. A CT scan of the abdomen and pelvis was negative for any acute changes. She was found to have a large hiatal hernia with some thickening of the gastric folds in the hiatal hernia sac. She has had endoscopies within the last several years. She is known to have severe GERD and esophageal ulcer. I suspect that her symptoms are related to norovirus gastroenteritis. RECOMMENDATIONS: 1. Advance diet as tolerated. 2. I will start the patient on PPI. 3. Check stool for norovirus EIA. 4. If the patient tolerates diet, she can be discharged home with outpatient followup. Efe Escamilla MD
[2017-10-11] MEDS ORDERED: Pantoprazole 40 mg EC Tab PO SCH (06:00)
[2017-10-11 07:51] VITALS: RESP 18; TEMP 98; O2SAT 98
[2017-10-11 09:32] VITALS: BP 131/68; PULSE 78
== END 2017-10-11 12:40 | disposition home or self-care (01) ==
LOC: ED 10:44 → ERH 14:25 → 5RSO 16:54
PROVIDERS: ADMIT Internal Medicine; ATTEND Internal Medicine
DX: A08.11 Acute gastroenteropathy due to Norwalk agent (principal); E78.00 Pure hypercholesterolemia, unspecified; I10 Essential (primary) hypertension; J44.9 Chronic obstructive pulmonary disease, unspecified; K21.9 Gastro-esophageal reflux disease without esophagitis; K22.10 Ulcer of esophagus without bleeding; K29.70 Gastritis, unspecified, without bleeding; K44.9 Diaphragmatic hernia without obstruction or gangrene; Z79.82 Long term (current) use of aspirin; Z79.899 Other long term (current) drug therapy; Z85.3 Personal history of malignant neoplasm of breast; Z87.19 Personal history of other diseases of the digestive system; Z87.891 Personal history of nicotine dependence; Z90.49 Acquired absence of other specified parts of digestive tract
CPT/HCPCS: 74177; 80053; 81001; 83690; 83735; 84100; 85025; 87449; 96374; 96375; 99283; G0378; J2405; J2765; J7030; J7040; Q9967

== ENCOUNTER 2017-11-22 09:55 | Emergency (ER) | payer MEDICARE ==
[2017-11-22 09:56] VITALS: BMI 30.2
[2017-11-22 10:09] VITALS: O2SAT 98
--- NOTE | 2017-11-22 10:27 | ED PDOC ---
Arrival/HPI - General Chief Complaint: Lower Extremity Problem/Injury Time Seen by Provider: 11/22/17 10:26 - History of Present Illness Narrative History of Present Illness (Text): 11/22/17 10:27 77 year old female whose past medical history includes hypertension, asthma, COPD, GERD, appendectomy, breast cancer with lumpectomy, and sciatica presents to the Emergency department complaining of right leg pain for a few months. Patient reports worsening pain radiating throughout her right leg and reports she did not take any pain medication. Patient denies any history of blood clots and states she is not on any blood thinners. Patient denies any fever, chills, chest pain, shortness of breath, nausea, vomiting, diarrhea, urinary symptoms, back pain, neck pain, headache, dizziness or any other complaints. PMD: Dr. Serna Time/Duration: < month Symptom Onset: Gradual Symptom Course: Unchanged Quality: Aching Activities at Onset: Light Context: Home Past Medical History - Provider Review Nursing Documentation Reviewed: Yes - Infectious Disease Hx of Infectious Diseases: None - Tetanus Immunization Tetanus Immunization: Unknown - Cardiac Hx Cardiac Disorders: Yes (cad) Hx Hypertension: Yes Hx Peripheral Edema: Yes (ble +2 edema) Other/Comment: varicose veins - Pulmonary Hx Respiratory Disorders: Yes Hx Pneumonia: Yes - Neurological Hx Neurological Disorder: No - HEENT Hx HEENT Disorder: Yes Hx Cataracts: Yes - Renal Hx Renal Disorder: No - Endocrine/Metabolic Hx Endocrine Disorders: No - Hematological/Oncological Hx Blood Disorders: Yes Hx Cancer: Yes (BREAST) - Integumentary Hx Dermatological Disorder: No - Musculoskeletal/Rheumatological Hx Musculoskeletal Disorders: Yes - Gastrointestinal Hx Gastrointestinal Disorders: Yes (APPENDECTOMY, gastroenteritis) - Genitourinary/Gynecological Hx Genitourinary Disorders: Yes - Psychiatric Hx Psychophysiologic Disorder: Yes Hx Anxiety: Yes Hx Depression: Yes Hx Substance Use: No - Surgical History Hx Appendectomy: Yes Hx Cardiac Catheterization: Yes Other/Comment: arthoscopic sx b/l knees - Anesthesia Hx Anesthesia Reactions: Yes (SEVERE NAUSEA AND VOMITING) Hx Malignant Hyperthermia: No - Suicidal Assessment Feels Threatened In Home Enviroment: No Family/Social History - Physician Review Nursing Documentation Reviewed: Yes Family/Social History: Unknown Family HX Smoking Status: Former Smoker Hx Alcohol Use: No Hx Substance Use: No Allergies/Home Meds Allergies/Adverse Reactions: Allergies aspirin [From Earnest Aspirin] Allergy (Verified 11/22/17 09:58) VOMITING pneumonia vaccine Allergy (Uncoded 11/22/17 09:58) RASH Home Medications: Home Meds Medication Instructions Recorded Confirmed Aspirin [Aspir 81] 81 mg PO DAILY 07/07/13 11/22/17 Dexlansoprazole [Dexilant] 60 mg PO DAILY 07/08/13 11/22/17 Carvedilol [Coreg] 6.25 mg PO Q12H 07/18/14 11/22/17 hydroCHLOROthiazide [Microzide] 12.5 mg PO DAILY 04/23/17 11/22/17 Calcium Carbonate [Caltrate] 600 mg PO DAILY 10/09/17 11/22/17 Escitalopram [Lexapro] 10 mg PO DAILY 10/09/17 11/22/17 Multivit-Min/Iron/Folic/Lutein 1 each PO DAILY 10/09/17 11/22/17 [Centrum Silver Women Tablet] Zolpidem [Ambien] 5 mg PO DAILY 10/09/17 11/22/17 Review of Systems - Physician Review All systems were reviewed & negative as marked: Yes - Review of Systems Constitutional: Normal. absent: Fevers Eyes: Normal ENT: Normal Respiratory: Normal. absent: SOB Cardiovascular: Normal. absent: Chest Pain Gastrointestinal: Normal. absent: Diarrhea, Nausea, Vomiting Genitourinary Female: Normal. absent: Dysuria, Urine Output Changes Musculoskeletal: Other (Right leg pain). absent: Back Pain, Neck Pain Skin: Normal Neurological: Normal. absent: Headache Endocrine: Normal Hemo/Lymphatic: Normal Psychiatric: Normal Physical Exam Vital Signs Reviewed: Yes Vital Signs Temp Pulse Resp BP Pulse Ox 11/22/17 11:37 98 F 11/22/17 10:54 98 F 86 19 123/56 L 11/22/17 10:01 97.7 F 83 16 105/70 98 Temperature: Afebrile Blood Pressure: Normal Pulse: Regular Respiratory Rate: Normal Appearance: Positive for: Well-Appearing, Non-Toxic, Comfortable Pain Distress: None Mental Status: Positive for: Alert and Oriented X 3 - Systems Exam Head: Present: Atraumatic, Normocephalic Pupils: Present: PERRL Extroacular Muscles: Present: EOMI Conjunctiva: Present: Normal Mouth: Present: Moist Mucous Membranes Neck: Present: Normal Range of Motion Respiratory/Chest: Present: Clear to Auscultation, Good Air Exchange. No: Respiratory Distress, Accessory Muscle Use Cardiovascular: Present: Regular Rate and Rhythm, Normal S1, S2. No: Murmurs Abdomen: No: Tenderness, Distention, Peritoneal Signs Back: Present: Pain with Leg Raise (positive straight leg to 20 degrees ) Upper Extremity: Present: Normal Inspection. No: Cyanosis, Edema, Deformity Lower Extremity: Present: NORMAL PULSES (good DP pulse), Other (tenderness to entire right leg ). No: Edema, Erythema, Deformity Neurological: Present: GCS=15, CN II-XII Intact, Speech Normal Skin: Present: Warm, Dry, Normal Color. No: Rashes Psychiatric: Present: Alert, Oriented x 3, Normal Insight, Normal Concentration Medical Decision Making ED Course and Treatment: 11/22/17 10:27 Impression: 77 year old female presenting to the Emergency department complaining of right leg pain. Plan: -- Valium -- Reassess and disposition Prior Visits: Notes and results from previous visits were reviewed. Progress Notes: Patient given 5mg valium PO for muscle pain/spasm. She has tenderness even with light touch to the entire right leg, and states that the pain seems to originate from her low back/right buttock. R straight leg raise is positive. She has had this pain for weeks. This is not likely to be a DVT. Will re- evaluate patient after receiving muscle relaxant. 11/22/17 11:05 Upon reassessment, patient's pain was resolved. Patient will be discharged home with Valium for pain and follow up instructions for PMD. - Medication Orders Current Medication Orders: Discontinued Medications Diazepam (Valium) 5 mg PO ONCE ONE PRN Reason: Protocol Stop: 11/22/17 10:34 Last Admin: 11/22/17 10:43 Dose: 5 mg - Scribe Statement The provider has reviewed the documentation as recorded by the Him[facility]hu [facility] All medical record entries made by the Himanshu were at my direction and personally dictated by me. I have reviewed the chart and agree that the record accurately reflects my personal performance of the history, physical exam, medical decision making, and the department course for this patient. I have also personally directed, reviewed, and agree with the discharge instructions and disposition. Disposition/Present on Arrival - Present on Arrival Any Indicators Present on Arrival: No History of DVT/PE: No History of Uncontrolled Diabetes: No Urinary Catheter: No History of Decub. Ulcer: No History Surgical Site Infection Following: None - Disposition Have Diagnosis and Disposition been Completed?: Yes Diagnosis: Right leg pain Disposition: HOME/ ROUTINE Disposition Time: 11:37 Condition: STABLE Discharge Instructions (ExitCare): Muscle and Bone Pain (DC) Additional Instructions: PATRICIA HAUSER, thank you for letting us take care of you today. Your provider was Kitty Chatterjee MD and you were treated for PAIN (R)LEG. The emergency medical care you received today was directed at your acute symptoms. If you were prescribed any medication, please fill it and take as directed. It may take several days for your symptoms to resolve. Return to the Emergency Department if your symptoms worsen, do not improve, or if you have any other problems. Please contact your doctor or call one of the physicians/clinics you have been referred to that are listed on the Patient Visit Information form that is included in your discharge packet. Bring any paperwork you were given at discharge with you along with any medications you are taking to your follow up visit. Our treatment cannot replace ongoing medical care by a primary care provider outside of the emergency department. Thank you for allowing the [facility] team to be part of your care today. If you had an X-Ray or CT scan: A Radiologist will review the ED reading if any change in treatment is needed we will contact you. If you had a blood, urine, or wound culture: It will take several days for the results, if any change in treatment is needed we will contact you. If you had an STI test: It will take 48 hours for the results. Please call after 1 week if you have not heard back. Prescriptions: diaZEpam [Valium] 5 mg PO TID PRN #9 tab PRN Reason: Muscle Spasm Referrals: Dash Serna JD, MD [Primary Care Provider] - Follow up with primary Forms: [employer])
[2017-11-22 11:36] VITALS: BP 123/56; PULSE 86; RESP 19; TEMP 98
== END 2017-11-22 11:37 | disposition home or self-care (01) ==
LOC: ED 09:55
DX: M79.604 Pain in right leg (principal); I10 Essential (primary) hypertension; Z87.891 Personal history of nicotine dependence

== ENCOUNTER 2018-06-06 07:38 | Outpatient (CLI) | payer MEDICARE | END 2018-06-06 07:39 | disposition home or self-care (01) | LOC: LAB 07:38 ==

== ENCOUNTER 2018-06-10 07:33 | Outpatient (CLI) | payer MEDICARE | END 2018-06-10 07:34 | disposition home or self-care (01) | LOC: RAD 07:33 | DX: R10.9 Unspecified abdominal pain (principal) ==

== ENCOUNTER 2018-07-10 10:31 | Inpatient (IN) | payer MEDICARE ==
[2018-07-10 10:47] VITALS: BMI 28.3
[2018-07-10] MEDS ORDERED: guaiFENesin DM 200 mg-20 mg/10 ml UD PO STA (11:37)
[2018-07-10] MEDS ORDERED: Albuterol-Ipratrop 3 mg / 0.5 (3 ml) UD IH STA (11:37)
[2018-07-10] MEDS ORDERED: Sodium Chloride 0.9% 1,000 ML IV STA (11:37)
--- NOTE | 2018-07-10 11:49 | ED PDOC ---
Arrival/HPI - General Chief Complaint: Cough, Cold, Congestion Historian: Patient - History of Present Illness Narrative History of Present Illness (Text): 07/10/18 11:40 78 y/o F with a PMH of hypertension, asthma, COPD, GERD, appendectomy, breast cancer with lumpectomy (remission 5yrs), and sciatica presents to the ED complaining of Cough w/ yellow sputum, Cold, Congestion x5 days. Patient endorses having chest palpations radiating to her back and trouble breathing. Patient mentioned that her PCP prescribed her antibiotics when she saw her Friday which offered no relief. Due to the lack of relief the patient went to [employer] to purchase over the counter medicine for her cough which also provided little relief. Patient endorses having chest palpations and trouble breathing. Patient denies any fevers, chills, headache, dizziness, abdominal pa in, nausea, vomiting, diarrhea, or any other complaint. Time/Duration: < week Symptom Onset: Gradual Symptom Course: Unchanged Activities at Onset: Light Context: Home Past Medical History - Provider Review Nursing Documentation Reviewed: Yes - Infectious Disease Hx of Infectious Diseases: None - Tetanus Immunization Tetanus Immunization: Unknown - Reproductive Menopause: Yes - Cardiac Hx Cardiac Disorders: Yes (cad) Hx Hypertension: Yes Hx Peripheral Edema: Yes (ble +2 edema) Other/Comment: varicose veins - Pulmonary Hx Respiratory Disorders: Yes Hx Pneumonia: Yes - Neurological Hx Neurological Disorder: No - HEENT Hx HEENT Disorder: Yes Hx Cataracts: Yes - Renal Hx Renal Disorder: No - Endocrine/Metabolic Hx Endocrine Disorders: No - Hematological/Oncological Hx Blood Disorders: Yes Hx Cancer: Yes (BREAST) - Integumentary Hx Dermatological Disorder: No - Musculoskeletal/Rheumatological Hx Musculoskeletal Disorders: Yes - Gastrointestinal Hx Gastrointestinal Disorders: Yes (APPENDECTOMY, gastroenteritis) - Genitourinary/Gynecological Hx Genitourinary Disorders: Yes - Psychiatric Hx Psychophysiologic Disorder: Yes Hx Anxiety: Yes Hx Depression: Yes Hx Substance Use: No - Surgical History Hx Appendectomy: Yes Hx Cardiac Catheterization: Yes Other/Comment: arthoscopic sx b/l knees - Anesthesia Hx Anesthesia: Yes Hx Anesthesia Reactions: Yes (SEVERE NAUSEA AND VOMITING) Hx Malignant Hyperthermia: No - Suicidal Assessment Feels Threatened In Home Enviroment: No Family/Social History - Physician Review Nursing Documentation Reviewed: Yes Family/Social History: No Known Family HX Smoking Status: Former Smoker Hx Alcohol Use: No Hx Substance Use: No Allergies/Home Meds Allergies/Adverse Reactions: Allergies aspirin [From Earnest Aspirin] Allergy (Verified 07/10/18 11:07) VOMITING pneumonia vaccine Allergy (Uncoded 07/10/18 11:07) RASH Home Medications: Home Meds Medication Instructions Recorded Confirmed Aspirin [Aspir 81] 81 mg PO DAILY 07/07/13 07/10/18 Dexlansoprazole [Dexilant] 60 mg PO DAILY 07/08/13 07/10/18 Carvedilol [Coreg] 6.25 mg PO Q12H 07/18/14 07/10/18 hydroCHLOROthiazide [Microzide] 12.5 mg PO DAILY 04/23/17 07/10/18 Calcium Carbonate [Caltrate] 600 mg PO DAILY 10/09/17 07/10/18 Escitalopram [Lexapro] 10 mg PO DAILY 10/09/17 07/10/18 Multivit-Min/Iron/Folic/Lutein 1 each PO DAILY 10/09/17 07/10/18 [Centrum Silver Women Tablet] Zolpidem [Ambien] 5 mg PO DAILY 10/09/17 07/10/18 Amoxicillin/Clavulanate [Augmentin 1 tab PO DAILY 07/10/18 07/10/18 875 MG-125 MG] Review of Systems - Physician Review All systems were reviewed & negative as marked: Yes - Review of Systems Constitutional: absent: Fevers ENT: absent: Sore Throat, Rhinorrhea Respiratory: SOB, Cough, Sputum (Yellow) Cardiovascular: Chest Pain, Palpitations (Radiating to back) Gastrointestinal: absent: Abdominal Pain, Diarrhea, Nausea, Vomiting Neurological: absent: Headache, Dizziness Physical Exam Vital Signs Reviewed: Yes Vital Signs Temp Pulse Resp BP Pulse Ox 07/10/18 10:47 98.1 F 92 H 18 136/63 98 Temperature: Afebrile Blood Pressure: Normal Pulse: Regular Respiratory Rate: Normal Appearance: Positive for: Well-Appearing, Non-Toxic, Uncomfortable Pain Distress: None Mental Status: Positive for: Alert and Oriented X 3 - Systems Exam Head: Present: Atraumatic, Normocephalic Extroacular Muscles: Present: EOMI Mouth: Present: Moist Mucous Membranes Neck: Present: Normal Range of Motion Respiratory/Chest: Present: Wheezes (bilateral), Rhonchi. No: Respiratory Distress, Accessory Muscle Use Cardiovascular: Present: Regular Rate and Rhythm, Normal S1, S2. No: Murmurs Abdomen: No: Tenderness, Distention, Peritoneal Signs Back: Present: Normal Inspection Upper Extremity: Present: Normal Inspection. No: Cyanosis, Edema Lower Extremity: Present: Normal Inspection. No: Edema Neurological: Present: GCS=15, Speech Normal Skin: Present: Warm, Dry, Normal Color. No: Rashes Psychiatric: Present: Alert, Oriented x 3, Normal Insight, Normal Concentration Medical Decision Making ED Course and Treatment: 07/10/18 12:06 Impression: 78 y/o F presents to the ED complaining of Cough w/ yellow sputum, Cold, Congestion x5 days. Differential Diagnosis included but are not limited to: Pneumonia Influenza Bronchitis Plan: --Labs --Chest X-ray --Albuterol --Saline IV --Solu-Medrol --Robitussin Dm --Urinalysis -- Reassess and disposition Prior Visits: Notes and results from previous visits were reviewed. Progress Notes: 07/10/18 12:46 Labs reviewed with no evidence of leukocytosis or electrolyte disturbances. Call placed to Dr.Mitchell Serna(PCP). 07/10/18 12:49 Discussed patient's clinical condition with Dr. Dash Serna who accepts patient. He requests consult to Dr. Jones ([facility]) - Lab Interpretations Lab Results: 07/10/18 11:30 07/10/18 11:30 Lab Results 07/10/18 11:55: pO2 22 L, VBG pH 7.44 H, VBG pCO2 42.0, VBG HCO3 28.5 H, VBG Total CO2 29.8 H, VBG O2 Sat (Calc) 53.5, VBG Base Excess 3.9 H, VBG Potassium 3.4 L, Glucose 101, Lactate 2.1, FiO2 21.0, Sodium 140.0, Chloride 103.0, Venous Blood Potassium 3.4 L 07/10/18 11:30: Influenza Typ A,B (EIA) Negative for flu a/b 07/10/18 11:30: Sodium 137, Potassium 3.5 L, Chloride 99, Carbon Dioxide 28, Anion Gap 13, BUN 18, Creatinine 1.0, Est GFR ( Amer) > 60, Est GFR (Non- Af Amer) 53, Random Glucose 103, Calcium 9.7, Magnesium 1.7, Total Bilirubin 0.7, AST 40 H, ALT 19, Alkaline Phosphatase 82, Troponin I < 0.01, NT-Pro-B Natriuret Pep 101, Total Protein 8.3, Albumin 4.6, Globulin 3.7, Albumin/Globulin Ratio 1.2 07/10/18 11:30: PT 13.2 H, INR 1.17, APTT 32.6 07/10/18 11:30: WBC 8.4, RBC 4.18, Hgb 12.7, Hct 38.4, MCV 91.9, MCH 30.4, MCHC 33.1, RDW 12.9, Plt Count 187, MPV 11.0, Neut % (Auto) 69.2 H, Lymph % (Auto) 18.5 L, Towns % (Auto) 10.0 H, Eos % (Auto) 1.9, Baso % (Auto) 0.4, Lymph # (Auto) 1.6, Towns # (Auto) 0.8 H, Eos # (Auto) 0.2, Baso # (Auto) 0.03, Absolute Neuts (auto) 5.79 I have reviewed the lab results: Yes - RAD Interpretation Radiology Orders: 07/10/18 11:35 CHEST PORTABLE [RAD] Stat - EKG Interpretation EKG Interpretation (Text): 07/10/18 12:05 NSR @ 88 bpm Peaked T waves in precordial leads - Medication Orders Current Medication Orders: Sodium Chloride (Sodium Chloride 0.9%) 1,000 mls @ 999 mls/hr IV .Q1H1M STA Stop: 07/10/18 12:37 Discontinued Medications Albuterol/Ipratropium (Duoneb 3 Mg/0.5 Mg (3 Ml) Ud) 3 ml IH STAT STA Stop: 07/10/18 11:38 Guaifenesin/Dextromethorphan (Robitussin Dm) 10 ml PO Q4H STA Stop: 07/10/18 11:38 Methylprednisolone (Solu-Medrol) 125 mg IVP STAT STA Stop: 07/10/18 11:38 - PA / CLINICAL ADVISOR / Resident Statement MD/DO has reviewed & agrees with the documentation as recorded. - Scribe Statement The provider has reviewed the documentation as recorded by the Scribtimothy Blackmonsaint All medical record entries made by the Himanshu were at my direction and personally dictated by me. I have reviewed the chart and agree that the record accurately reflects my personal performance of the history, physical exam, medical decision making, and the department course for this patient. I have also personally directed, reviewed, and agree with the discharge instructions and disposition. Disposition/Present on Arrival - Present on Arrival Any Indicators Present on Arrival: No History of DVT/PE: No History of Uncontrolled Diabetes: No Urinary Catheter: No History of Decub. Ulcer: No History Surgical Site Infection Following: None - Disposition Have Diagnosis and Disposition been Completed?: No Diagnosis: COPD exacerbation Disposition: HOSPITALIZED Disposition Time: 13:19 Patient Plan: Admission Condition: GUARDED
[2018-07-10 12:05] LABS: VENOUS BLOOD GAS BASE EXCESS 3.9 mmol/L (0.0-2.0); VENOUS BLOOD GAS PO2 22 mm/Hg (30-55); VENOUS BLOOD PH 7.44 (7.32-7.43)
[2018-07-10 12:16] LABS: BASO # 0.03 K/mm3 (0.0-2.0); BASO % 0.4 % (0.0-3.0); EOS # 0.2 (0.0-0.7); EOS % 1.9 % (1.5-5.0); HEMOGLOBIN 12.7 g/dL (12.0-16.0); LYMPH # 1.6 (1.2-3.4); LYMPH % 18.5 % (22.0-35.0); MEAN CELL VOLUME 91.9 fl (80.0-105.0); MEAN CORPUSCULAR HEMOGLOBIN 30.4 pg (25.0-35.0); MEAN CORPUSCULAR HGB CONC 33.1 g/dl (31.0-37.0); MONO # 0.8 (0.1-0.6); RBC 4.18 10^6/uL (3.5-6.1); RED CELL DISTRIBUTION WIDTH 12.9 % (11.5-14.5); WHITE BLOOD COUNT 8.4 10^3/uL (4.5-11.0)
[2018-07-10] MEDS ORDERED: Albuterol 0.083% Inhal Sol (2.5 mg/3 mL) UD INH STA ×2 (12:19→13:25)
[2018-07-10 12:21] LABS: INR 1.17; PARTIAL THROMBOPLASTIN TIME 32.6 Seconds (26.9-38.3); PROTHROMBIN TIME 13.2 SECONDS (9.4-12.5)
--- NOTE | 2018-07-10 12:21 | RAD ---
Date of service: 07/10/2018 HISTORY: cough r/o PNA COMPARISON: 11/29/2017 FINDINGS: LUNGS: No active pulmonary disease. PLEURA: No significant pleural effusion identified, no pneumothorax apparent. CARDIOVASCULAR: Mild aortic calcification Mild cardiomegaly no pulmonary vascular congestion. OSSEOUS STRUCTURES: No significant abnormalities. VISUALIZED UPPER ABDOMEN: Normal. OTHER FINDINGS: None. IMPRESSION: No active disease.
[2018-07-10 12:26] LABS: ALB/GLOB RATIO 1.2 (1.1-1.8); ALBUMIN 4.6 g/dL (3.0-4.8); ALT/SGPT 19 U/L (7-56); AST/SGOT 40 U/L (14-36); BLOOD UREA NITROGEN 18 mg/dL (7-21); CALCIUM 9.7 mg/dL (8.4-10.5); GFR NON-AFRICAN AMERICAN 53
[2018-07-10 12:39] LABS: B-TYPE NATRIURETIC PEPTIDE 101 pg/mL (0-450); TROPONIN I < 0.01 ng/mL
[2018-07-10] MEDS: cefTRIAXone 1 gm 1 GM/100 ML BAG IVPB SCH (15:35)
[2018-07-10 15:55] LABS: PH,URINE 6.5 (4.7-8.0); URINE BILIRUBIN NEGATIVE (NEGATIVE); URINE BLOOD NEGATIVE (NEGATIVE); URINE GLUCOSE (UA) NEGATIVE (NEGATIVE); URINE LEUKOCYTE ESTERASE NEGATIVE Leu/uL (NEGATIVE); URINE PROTEIN NEGATIVE mg/dL (<30 mg/dL); URINE UROBILINOGEN 0.2 E.U./dL (<1 E.U./dL)
[2018-07-10 15:57] LABS: URINE APPEARANCE CLEAR (CLEAR); URINE COLOR LIGHT YELLOW (YELLOW)
[2018-07-10] MEDS: Azithromycin 500MG/NS 250ml 500 MG/250 ML BAG IVPB SCH (16:35)
[2018-07-10] MEDS ORDERED: Influenza Vaccine 60 mcg/0.5 mL SYR (4YR UP) IM ONE (16:44)
[2018-07-10 16:49] LABS: VENOUS BLOOD GAS BASE EXCESS 4.6 mmol/L (0.0-2.0); VENOUS BLOOD GAS PO2 47 mm/Hg (30-55); VENOUS BLOOD PH 7.48 (7.32-7.43)
--- NOTE | 2018-07-10 17:22 | CARD ---
APPROVED REPORT Date of service: 07/10/2018 EKG Measurement Heart [id number] <Conclusion> Sinus rhythm with 1st degree AV block Inferior infarct, age undetermined Abnormal ECG
[2018-07-10] MEDS: Potassium Chloride 20 mEq ER Tab PO SCH (17:32)
[2018-07-10] MEDS: Albuterol-Ipratrop 3 mg / 0.5 (3 ml) UD IH SCH (20:28)
[2018-07-10] MEDS: MethylPREDNISolone 40 mg Vial IVP SCH (21:42)
[2018-07-10] MEDS: guaiFENesin DM 100 mg-10 mg/5 ml UD PO PRN (21:48)
--- NOTE | 2018-07-10 23:20 | HP ---
DATE OF EXAM: 07/10/2018 HISTORY OF PRESENT ILLNESS: The patient is an 78-year-old female admitted through the emergency department today with increasing cough and shortness of breath with increasing chest discomfort with cough. Cough is productive of some yellow sputum. There is no fever, no chills, and no hemoptysis. The patient had been given Augmentin 875 mg twice daily a couple days prior to admission without relief of symptoms. She is being admitted to the medical-surgical floor for further evaluation and management. PAST MEDICAL HISTORY: Includes hypertension, nonobstructive coronary artery disease, GERD, and degenerative joint disease. PAST SURGICAL HISTORY: Includes adenocarcinoma of the breast, status post right lumpectomy in 2009. The patient is also status post appendectomy in the remote past. CURRENT MEDICATIONS: Include Dexilant 60 mg daily carvedilol 6.25 mg twice daily. ALLERGIES: THE PATIENT HAS NO KNOWN ALLERGIES. SOCIAL HISTORY: The patient has a history of tobacco in the remote past approximately 40 years ago. No history of alcohol or drug use. FAMILY HISTORY: Noncontributory. REVIEW OF SYSTEMS: Essentially as above. PHYSICAL EXAMINATION: GENERAL: The patient is a well-developed female, in no acute distress. VITAL SIGNS: Blood pressure 131/69, temperature 98.1, pulse 81, and respiratory rate 18. HEENT: Head is normocephalic and atraumatic. Pupils equal, round, reactive to light. Extraocular movements intact. NECK: Supple. No thyromegaly. No adenopathy. No carotid bruit. LUNGS: Show a few bibasilar crackles with scattered rhonchi and occasional expiratory wheeze. HEART: Regular rate and rhythm. ABDOMEN: Soft and nontender. Bowel sounds are normoactive. EXTREMITIES: Without cyanosis, clubbing, or edema. NEUROLOGIC: The patient is awake and oriented x3 without focal sensory or motor deficits. SKIN: Warm and dry. LABORATORY DATA: WBC is 8.4, hemoglobin 12.7, and hematocrit 38.4. Sodium 137, potassium 3.5, chloride 99, CO2 of 28, BUN 18, creatinine 1.0, and glucose 103. Troponin is less than 0.01. Chest x-ray shows no active disease. IMPRESSION: 1. Exacerbation of asthma/chronic obstructive pulmonary disease with bronchitis. 2. Hypokalemia. 3. Hypertension. 4. History of carcinoma of the breast, status post right lumpectomy. PLAN: The patient is admitted to the Medical-Surgical Floor. We will start empiric IV antibiotics with Rocephin 1 g every 24 hours IV and Zithromax 500 mg every 24 hours IV, DuoNebs every 6 hours. We will start Solu-Medrol 40 mg IV every 12 hours. Obtain Pulmonary consultation with Dr. Jones. Heart-healthy diet. TREY Laureano MD
--- NOTE | 2018-07-10 23:28 | CON ---
DATE: 07/10/2018 PULMONARY CONSULT REFERRING PHYSICIAN: Dr. Serna REASON FOR CONSULT: Cough, shortness of breath, may have sleep apnea syndrome. HISTORY OF PRESENT ILLNESS: This is an 78-year-old female with known history of chronic lung disease, hypertension, history of breast cancer requiring lumpectomy in the past, lumbar radiculopathy, recently had her 78th birthday with friends and family, next day ended up with rhinitis, fever, body ache and pain, did take antibiotics reportedly as an outpatient, not much relief. Comes into ER with cough, shortness of breath. No nausea, no vomiting, no diarrhea. No leg pain or leg swelling. In the past, she refused sleep study, though she snores and daytime tired and sleepy. PAST MEDICAL HISTORY: Chronic lung disease, GERD, hypertension, breast cancer, history of lumpectomy, coronary artery disease, has varicose veins, history of pneumonias in the past, also has anxiety disorder with depression. SOCIAL HISTORY: Former smoker. Denied any alcohol use. FAMILY HISTORY: No significant cardiopulmonary disease reported. ALLERGIES: TO ASPIRIN. ALSO ALLERGIC TO PNEUMONIA VACCINE. MEDICATIONS: She is on Coreg 6.25 mg twice a day, albuterol/Atrovent nebulizer every 6 hours, potassium 20 mEq daily, Protonix 40 mg daily, Robitussin DM 5 mL every 4 hours p.r.n., Rocephin 1 g IV daily, Solu-Medrol 40 mg twice a day, Tylenol p.r.n., Zithromax 500 mg daily. REVIEW OF SYSTEMS: Has some headache, rhinitis, cough, body aches and pain. No nausea, no vomiting, no diarrhea. No leg pain or leg swelling. Admits to having snoring, daytime sleepy and tired. PHYSICAL EXAMINATION: GENERAL: Mild distress because of cough and shortness of breath. VITAL SIGNS: Heart rate is 90, temperature is 98.1, respiratory rate is 20, blood pressure 144/75, pulse ox 98% on room air. HEENT: Moist mucous membrane. Crowded airway. Mallampati score is 4. NECK: Supple. No JVD. LUNGS: Scattered rhonchi. HEART: S1, S2. ABDOMEN: Soft, nontender. No organomegaly. EXTREMITIES: No edema. NEUROLOGICAL: Awake, alert, follows simple commands. LABORATORY DATA: Shows hemoglobin 12.7, hematocrit 38.4, WBC 8.4, platelet is 187. INR 1.17, PTT 33. Has a VBG done which shows pH 7.48, pCO2 of 38, O2 is 29. Sodium 137, potassium 3.5, chloride 99, bicarbonate 28, BUN 18, creatinine 1, glucose 103, calcium 9.7, magnesium 1.7, total bili 0.4, AST 40, ALT 19, alk phos is 82, albumin is 4.6. Urinalysis unremarkable. Influenza A and B negative. Chest x-ray done in the ER today does not show any infiltrate or effusion. Had a CAT scan of the chest done a few years ago, which shows hiatal hernia, emphysema, otherwise unremarkable. IMPRESSION AND PLAN: Probably viral-induced exacerbation of chronic obstructive lung disease, history of hypertension, hyperlipidemia, gastroesophageal reflux disease, hiatal hernia, may have sleep apnea syndrome. Agree with Dr. Serna with the present management. Continue steroids. Continue inhaled bronchodilator, antibiotics. Add Tessalon Perles for cough, Protonix h.s. Gastroesophageal reflux disease precaution. Gastric and deep venous thrombosis prophylaxis. We will send nasal swab for influenza A and B. Also send swab for respiratory syncytial virus. Thank you and we will follow with you. Fartun Jones MD
[2018-07-11] MEDS: Albuterol-Ipratrop 3 mg / 0.5 (3 ml) UD IH SCH ×4 (01:11→20:13)
[2018-07-11] MEDS: guaiFENesin DM 100 mg-10 mg/5 ml UD PO PRN ×3 (01:50→19:37)
[2018-07-11] MEDS: Pantoprazole 40 mg EC Tab PO SCH (06:08)
[2018-07-11 08:37] VITALS: RESP 20; O2SAT 95
--- NOTE | 2018-07-11 09:47 | PN ---
DATE: 07/11/2018 PULMONARY PROGRESS NOTE REFERRING PHYSICIAN: Dr. Serna. SUBJECTIVE: The patient is seen lying in bed. No acute distress. No overnight events reported. Reports feeling better this morning, states cough and shortness of breath have improved especially with nebulizer treatments. No headache, rhinitis, chest pain, abdominal pain, nausea, vomiting, diarrhea, leg pain, or leg swelling reported. OBJECTIVE: GENERAL: No acute distress. VITAL SIGNS: Blood pressure 149/85, pulse 112, temperature 97.7, oxygen saturation 95% on room air. HEENT: Moist mucous membranes. Crowded airway. Mallampati score of 4. NECK: Supple. No JVD. LUNGS: Few scattered rhonchi. CARDIOVASCULAR: S1, S2. ABDOMEN: Soft. Nontender. No distention. No organomegaly. EXTREMITIES: No bilateral lower extremity edema. NEUROLOGIC: Awake, alert, and verbal. Follows commands. LABORATORY DATA: Reviewed. No new labs since yesterday. IMPRESSION AND PLAN: Probable viral-induced exacerbation of chronic obstructive lung disease, history of hypertension, hyperlipidemia, gastroesophageal reflux disease, hiatal hernia, may suspect sleep apnea syndrome on this patient. Continue IV inhaled bronchodilators, antibiotic therapy, gastric prophylaxis, deep venous thrombosis prophylaxis. Influenza A and B negative. We suspect the patient to be high risk for sleep apnea, sleep apnea precaution, head of bed elevated at 45 degrees. They recommend the patient have sleep study as an outpatient and pulmonary function test. This patient was seen and examined with Dr. Jones. Discussed assessment and plan as described above. The patient was seen and examined with Andriy Robles, nurse practitioner. Discussed assessment and plan as described above. Thank you for this consult. We will follow with you. Andriy Robles APN Fartun Jones MD
[2018-07-11] MEDS: Enoxaparin 40 mg Syringe SC SCH (10:40)
[2018-07-11] MEDS: Potassium Chloride 20 mEq ER Tab PO SCH (10:40)
[2018-07-11] MEDS: Azithromycin 500MG/NS 250ml 500 MG/250 ML BAG IVPB SCH (10:41)
[2018-07-11] MEDS: MethylPREDNISolone 40 mg Vial IVP SCH ×3 (10:41→22:05)
--- NOTE | 2018-07-11 11:39 | CP.PCM.PN ---
Subjective - Date & Time of Evaluation Date of Evaluation: 07/11/18 Time of Evaluation: 11:00 - Subjective Subjective: OOB in chair, NAD, feels bettr, denies SOB, no chest pain Objective - Vital Signs/Intake and Output Vital Signs (last 24 hours): Temp Pulse Resp BP Pulse Ox 97.7 F 95 H 20 149/85 95 07/11/18 08:36 07/11/18 10:40 07/11/18 08:36 07/11/18 10:40 07/11/18 08:36 Intake and Output: 07/11/18 07/11/18 06:59 18:59 Intake Total 780 Output Total 1000 Balance -220 - Medications Medications: Current Medications Acetaminophen (Tylenol 325mg Tab) 650 mg PO Q6H PRN PRN Reason: Fever >100.4 F Albuterol/Ipratropium (Duoneb 3 Mg/0.5 Mg (3 Ml) Ud) 3 ml IH [id number] [facility] Last Admin: 07/11/18 08:20 Dose: 3 ml Carvedilol (Coreg) 6.25 mg PO BID [facility] Last Admin: 07/11/18 10:40 Dose: 6.25 mg Enoxaparin Sodium (Lovenox) 40 mg SC DAILY [facility]; Protocol Last Admin: 07/11/18 10:40 Dose: 40 mg Guaifenesin/Dextromethorphan (Robitussin Dm) 5 ml PO Q4H PRN PRN Reason: Cough Last Admin: 07/11/18 06:08 Dose: 5 ml Ceftriaxone Sodium (Rocephin 1 Gram Ivpb) 1 gm in 100 mls @ 100 mls/hr IVPB DAILY [facility]; Protocol Last Admin: 07/10/18 15:35 Dose: 100 mls/hr Azithromycin (Zithromax 500mg In Ns) 500 mg in 250 mls @ 167 mls/hr IVPB DAILY [facility]; Protocol Last Admin: 07/11/18 10:41 Dose: 167 mls/hr Methylprednisolone (Solu-Medrol) 40 mg IVP Q12 [facility] Last Admin: 07/11/18 10:41 Dose: 40 mg Methylprednisolone (Solu-Medrol) 20 mg IVP Q12 [facility] Pantoprazole Sodium (Protonix Ec Tab) 40 mg PO 0600 [facility] Last Admin: 07/11/18 06:08 Dose: 40 mg Potassium Chloride (K-Dur 20 Meq Er Tab) 20 meq PO BRK [facility] Last Admin: 07/11/18 10:40 Dose: 20 meq - Labs Labs: 07/10/18 11:30 07/10/18 11:30 PT 13.2 SECONDS (9.4-12.5) H 07/10/18 11:30 INR 1.17 07/10/18 11:30 APTT 32.6 Seconds (26.9-38.3) 07/10/18 11:30 - Respiratory Exam Respiratory Exam: Rhonchi, Wheezes - Cardiovascular Exam Cardiovascular Exam: REGULAR RHYTHM - GI/Abdominal Exam GI & Abdominal Exam: Soft, Normal Bowel Sounds - Extremities Exam Extremities Exam: Normal Inspection - Neurological Exam Neurological Exam: Alert, Awake - Skin Skin Exam: Dry, Warm Assessment and Plan (1) COPD exacerbation Status: Acute (2) Hypertension Status: Chronic - Assessment and Plan (Free Text) Plan: taper IV steroids, continue IV Rocephin/Zithromax, nebulizer rx, pulmonary follow-up Dr. Jones
[2018-07-11] MEDS: cefTRIAXone 1 gm 1 GM/100 ML BAG IVPB SCH (12:56)
[2018-07-11 15:58] VITALS: TEMP 97.6
[2018-07-12] MEDS: Albuterol-Ipratrop 3 mg / 0.5 (3 ml) UD IH SCH ×3 (01:28→13:02)
[2018-07-12] MEDS: Pantoprazole 40 mg EC Tab PO SCH (05:13)
[2018-07-12 08:03] LABS: HEMOGLOBIN 11.6 g/dL (12.0-16.0); LYMPH # 1.4 (1.2-3.4); LYMPH % 11.6 % (22.0-35.0); MEAN CORPUSCULAR HGB CONC 32.6 g/dl (31.0-37.0); MEAN PLATELET VOLUME 11.5 fl (7.0-11.0); MONO % 8.1 % (1.0-6.0); RBC 3.87 10^6/uL (3.5-6.1); RED CELL DISTRIBUTION WIDTH 13.4 % (11.5-14.5); WHITE BLOOD COUNT 12.2 10^3/uL (4.5-11.0)
[2018-07-12 08:25] LABS: ALB/GLOB RATIO 1.2 (1.1-1.8); ALBUMIN 4.2 g/dL (3.0-4.8); ALT/SGPT 46 U/L (7-56); AST/SGOT 61 U/L (14-36); BLOOD UREA NITROGEN 25 mg/dL (7-21); CALCIUM 9.3 mg/dL (8.4-10.5); GFR NON-AFRICAN AMERICAN > 60
[2018-07-12] MEDS: Potassium Chloride 20 mEq ER Tab PO SCH (09:00)
[2018-07-12] MEDS: Enoxaparin 40 mg Syringe SC SCH (09:24)
[2018-07-12] MEDS: MethylPREDNISolone 40 mg Vial IVP SCH (09:25)
[2018-07-12] MEDS: cefTRIAXone 1 gm 1 GM/100 ML BAG IVPB SCH (09:25)
[2018-07-12] MEDS: Azithromycin 500MG/NS 250ml 500 MG/250 ML BAG IVPB SCH (09:26)
[2018-07-12 09:35] VITALS: BP 134/66; PULSE 78
[2018-07-12] MEDS ORDERED: MethylPREDNISolone 40 mg Vial IVP SCH (10:00)
--- NOTE | 2018-07-12 10:53 | PN ---
DATE: 07/12/2018 PULMONARY PROGRESS NOTE REFERRING PHYSICIAN: Dr. Serna. SUBJECTIVE: The patient is seen sitting in armchair in room. Reports feeling well today. Still has cough. No headache, rhinitis, shortness of breath, chest pain, abdominal pain, nausea, vomiting, diarrhea, leg pain, or leg swelling reported. OBJECTIVE: GENERAL: No acute distress. VITAL SIGNS: Blood pressure 150/90, pulse 80, temperature 97.6, oxygen saturation 95%. HEENT: Moist mucous membranes. Mallampati score of 4. Crowded airway. NECK: Supple. No JVD. LUNGS: Fair airflow bilaterally. CARDIOVASCULAR: S1, S2. ABDOMEN: Soft. Nontender. No distention. No organomegaly. EXTREMITIES: No bilateral lower extremity edema. NEUROLOGIC: Awake, alert, verbal. Follows commands. MEDICATIONS: Reviewed. Tylenol 650 every 6 hours p.r.n. fever greater than 100.4, DuoNeb 3 mL inhalation every 6 hours, Zithromax 500 mg daily, Coreg 6.25 mg twice a day, Rocephin 1 g daily, Lovenox 40 mg daily, Robitussin 5 mL p.o. every 4 hours p.r.n., Solu-Medrol 20 mg every 12 hours, Protonix 40 mg daily, potassium chloride 20 mEq at breakfast. LABORATORY DATA: Reviewed. WBC 12.2, RBC 3.87, hemoglobin 11.6, hematocrit 35.6, platelets 179. Sodium 140, potassium 4.2, chloride 105, carbon dioxide 25, anion gap 14, BUN 25, creatinine 0.9, GFR greater than 60, random glucose 130, calcium 9.3, total bilirubin 0.2. AST 61, ALT 46, alkaline phosphatase 70, total protein 7.6, albumin is 4.2, globulin 3.4, albumin globulin ratio 1.2. IMPRESSION AND PLAN: Probable viral-induced exacerbation of chronic obstructive lung disease, history of hypertension, hyperlipidemia, gastroesophageal reflux disease, hiatal hernia, suspect sleep apnea syndrome in this patient, gastric prophylaxis, deep venous thrombosis prophylaxis. Continue antibiotic therapy. We will decrease Solu-Medrol to [address] the patient on Tessalon Perles for cough. Sleep apnea precaution, head of bed elevated at 45 degrees. We will avoid nocturnal sedation. We recommend this patient have sleep study and pulmonary function test as outpatient. This patient was seen and examined with Dr. Jones. Discussed assessment and plan as described above. The patient was seen and examined with Andriy Robles, nurse practitioner. Discussed assessment and plan as described above. Thank you for this consult. We will follow with you. Andriy Robles APN Fartun Jones MD
--- NOTE | 2018-07-12 23:10 | DS ---
HOSPITAL COURSE: The patient is an 78-year-old female admitted through the emergency department on 07/10/2018, with exacerbation of COPD with bronchitis. The patient was started empirically on IV Rocephin and Zithromax as well as intravenous Solu-Medrol. The patient received DuoNebs, Pulmonary consultation was called with Dr. Jones. The patient had an uneventful hospital course and is now stable with no complaints of shortness of breath. No wheezing. No chest pain. PHYSICAL EXAMINATION: VITAL SIGNS: Blood pressure 134/66, pulse 78, temperature 97.6, and respiratory rate 20. LUNGS: Clear. HEART: Regular rate and rhythm. ABDOMEN: Soft and nontender. Bowel sounds are normoactive. EXTREMITIES: Without cyanosis, clubbing or edema. NEUROLOGIC: The patient is awake and oriented x3, without focal sensory or motor deficits. LABORATORY DATA: WBC 12.2, hemoglobin 11.6, and hematocrit 35.6. Leukocytosis probably secondary to intravenous steroids. Chemistry; sodium 140, potassium 4.2, chloride 105, CO2 of 25, BUN 25, and glucose 130, glucose is slightly elevated probably secondary to steroids. IMPRESSION: 1. Exacerbation of chronic obstructive pulmonary disease with bronchitis. 2. Hypertension. 3. Hypokalemia, improved. 4. History of carcinoma of the breast, status post right lumpectomy. PLAN: The patient will be discharged to home today in stable condition on the following medications. The patient was given prescription for Zithromax 500 mg daily for 7 days, Medrol Dosepak as directed. Phenergan with Codeine 1 teaspoon every 6 hours p.r.n. She was advised to continue her home medications including Dexilant and was also prescribed Symbicort 160/4.5 mcg one inhalation twice daily. DIET: The patient will be maintained on a heart-healthy diet. ACTIVITIES: Ad libitum. FOLLOWUP: She was advised to follow up in my office within the next 1-2 weeks. Dash Serna JD/
== END 2018-07-12 13:52 | disposition home or self-care (01) | DRG 192 ==
LOC: ED 10:31 → ERH 12:45 → 3RNO 14:01
PROVIDERS: ADMIT Internal Medicine; ATTEND Internal Medicine
DX: J43.9 Emphysema, unspecified (principal); I25.10 Atherosclerotic heart disease of native coronary artery without angina pectoris; E78.5 Hyperlipidemia, unspecified; I10 Essential (primary) hypertension; E87.6 Hypokalemia; J31.0 Chronic rhinitis; K21.9 Gastro-esophageal reflux disease without esophagitis; Z79.82 Long term (current) use of aspirin; Z85.3 Personal history of malignant neoplasm of breast; Z87.01 Personal history of pneumonia (recurrent); Z87.891 Personal history of nicotine dependence; Z90.49 Acquired absence of other specified parts of digestive tract; Z88.6 Allergy status to analgesic agent; Z88.7 Allergy status to serum and vaccine; K44.9 Diaphragmatic hernia without obstruction or gangrene; G47.30 Sleep apnea, unspecified; Z87.09 Personal history of other diseases of the respiratory system

== ENCOUNTER 2018-09-23 07:38 | Day surgery (SDC) | payer MEDICARE ==
[2018-09-23 08:10] VITALS: BMI 28.7
[2018-09-23 08:23] VITALS: RESP 18; TEMP 98
[2018-09-23] MEDS ORDERED: Propofol 10 mg/ml Inj (20 ML) ONE (09:11)
[2018-09-23] MEDS ORDERED: Sodium Chloride 0.9% 1,000 ML IV SCH (09:45)
[2018-09-23 10:33] VITALS: PULSE 66; O2SAT 96
[2018-09-23 10:58] VITALS: BP 150/80
== END 2018-09-23 10:54 | disposition home or self-care (01) ==
LOC: ENDO 07:38
PROVIDERS: ATTEND Specialist
DX: K29.70 Gastritis, unspecified, without bleeding (principal); K44.9 Diaphragmatic hernia without obstruction or gangrene; R11.10 Vomiting, unspecified
CPT/HCPCS: 43239; 88305; 88342; J2405; J2704; J2765; J7030; J7040